=== PATIENT | female | born 1980 | race African-American/Black ===

== ENCOUNTER 2017-04-18 09:51 | Inpatient (IN) ==
[2017-04-18] MEDS ORDERED: ALBUTEROL 2.5 MG/3 ML NEB RESP TX STA (10:18)
[2017-04-18] MEDS ORDERED: ALBUTEROL 2.5 MG/3 ML NEB RESP TX ONE (10:29)
[2017-04-18 10:33] LABS: ABG Base Excess 3.9 MMOL/L (-2.5-2.5); ABG HCO3 27.9 MMOL/L (20-26); ABG Oxygen Saturation 94.4 % (95-100); ABG PCO2 55.5 MM HG (35-48); ABG PH 7.352 (7.35-7.45); ABG PO2 78.2 MM HG (80-95); ABG TCO2 27.8 MMOL/L (23-27)
[2017-04-18 10:46] LABS: Basophils % 0.2 % (0.0-0.8); Eosinophils % 0.2 % (0.00-10.9); Hematocrit 36.8 VOL% (35.7-47.0); Hemoglobin 11.6 GM/DL (12.0-16.0); Immature Granulocytes % 0.7 %; Immature Granulocytes Absolute 0.09 #; Lymphocytes # 1.2 10*3/uL (1.4-4.0); Lymphocytes % 9.6 % (21.3-54.2); Mean Corpuscular HGB Conc 31.5 GM/DL (32-36); Mean Corpuscular Hemoglobin 25 PG (27-34); Mean Corpuscular Volume 79.1 FL (87-102); Mean Platelet Volume 9.5 FL (9.6-12.0); Monocytes % 8.3 % (1.7-12.7); NRBC # 0.19 10*3/uL; Neutrophils # 10.1 10*3/uL (1.4-7.4); Platelet Count 275 T/CUMM (130-400); Red Blood Count 4.65 MC/CUMM (3.8-5.5); Red Cell Distribution Width 17.3 % (9.3-17.3); White Blood Count 12.5 T/CUMM (4-12)
[2017-04-18] MEDS ORDERED: MEROPENEM 1,000 MG in SODIUM CHLORIDE 0.9% 100 ML IV STA (10:59)
[2017-04-18] MEDS ORDERED: SULFAMETHOX/TRIMETHOPRIM 800-160 MG TABLET PO STA (10:59)
[2017-04-18] MEDS ORDERED: MEROPENEM 1,000 MG VIAL IV ONE ×3 (11:04→18:34)
[2017-04-18] MEDS ORDERED: SULFAMETHOX/TRIMETHOPRIM 800-160 MG TABLET ONE ×2 (11:05→16:09)
[2017-04-18 11:07] LABS: Alanine Aminotransferase 32 U/L (13-56); Albumin 3.5 G/DL (3.4-5.0); Alkaline Phosphatase 102 U/L (45-117); Aspartate Amino Transferase 26 U/L (0-37); Bilirubin,Total < 0.39 MG/DL (0.2-1.0); Blood Urea Nitrogen 16 MG/DL (7-18); Calcium 8.6 MG/DL (8.5-10.1); Glucose 186 MG/DL (74-106); Osmolality,Calculated 273.2 MOS/KG (273-304); Potassium 4.2 MMOL/L (3.5-5.1); Sodium 134 MMOL/L (136-145); Total Protein 7.7 G/DL (6.4-8.3)
[2017-04-18] MEDS ORDERED: SODIUM CHLORIDE 0.9% 1,000 ML IV SCH (11:30)
[2017-04-18] MEDS ORDERED: cefTRIAXone 1,000 MG in SODIUM CHLORIDE 0.9% 100 ML IV SCH (11:30)
[2017-04-18] MEDS ORDERED: VANCOMYCIN INJ 1,000 MG in SODIUM CHLORIDE 0.9% 250 ML IV SCH (11:30)
[2017-04-18] MEDS ORDERED: AZITHROMYCIN 500 MG VIAL IV ONE (11:58)
[2017-04-18] MEDS ORDERED: VANCOMYCIN 1,000 MG VIAL ONE (11:58)
[2017-04-18] MEDS ORDERED: VANCOMYCIN INJ 2,000 MG in SODIUM CHLORIDE 0.9% 500 ML IV SCH (12:00)
[2017-04-18] MEDS: methylPREDNISolone SOD SUC 40 MG/1 ML VIAL IV SCH (12:15)
[2017-04-18] MEDS: AZITHROMYCIN INJ 500 MG in SODIUM CHLORIDE 0.9% 250 ML IV SCH (12:17)
[2017-04-18 12:21] LABS: Hepatitis A Ab IgM Quant 0.05 Index; Hepatitis A Ab IgM Result Negative (Negative); Hepatitis B Core IgM Quant 0.11 Index; Hepatitis B Core IgM Result Negative (Negative); Hepatitis B Surface Ag Quant < 0.10 Index; Hepatitis B Surface Ag Result Negative (Negative); Hepatitis C Virus Ab Quant < 0.02 Index; Hepatitis C Virus Ab Result Negative (Negative)
[2017-04-18] MEDS: ALBUTEROL/IPRATROPIUM 3 ML NEB RESP TX SCH ×2 (13:08→20:11)
[2017-04-18] MEDS: VANCOMYCIN INJ 2,000 MG in SODIUM CHLORIDE 0.9% 500 ML IV SCH (13:09)
[2017-04-18] MEDS ORDERED: MORPHINE 2 MG/1 ML SYRINGE ONE (16:06)
[2017-04-18] MEDS: MORPHINE 2 MG/1 ML SYRINGE IV PRN (16:07)
[2017-04-18] MEDS: SULFAMETHOX/TRIMETHOPRIM 800-160 MG TABLET PO SCH ×2 (16:09→20:32)
[2017-04-18] MEDS: MEROPENEM 500 MG in SYRINGE 1 EACH IV SCH (18:41)
[2017-04-18] MEDS: guaiFENesin/DM ER 600-30 MG TABLET PO SCH (20:32)
[2017-04-18] MEDS: ENOXAPARIN 40 MG/0.4 ML SYRINGE SUBCUT SCH (20:32)
[2017-04-18] MEDS ORDERED: FUROSEMIDE 40 MG/4 ML VIAL IV ONE (21:19)
[2017-04-18] MEDS ORDERED: FUROSEMIDE 40 MG/4 ML VIAL ONE (21:36)
[2017-04-18 23:20] LABS: Apearance,Urine Slightly Hazy (Clear); Bilirubin,Urine Negative (Negative); Blood, Urine Negative (Negative); Glucose,Urine (UA) 50 mg/dL (Negative); Granular Casts,Urine 6 /LPF (0-1); Hyaline Casts,Urine 11 /LPF (0-3); Ketones,Urine Negative (Negative); Mucus,Urine Occasional /LPF (Occasional); Nitrite,Urine Negative (Negative); Protein,Urine 30 MG/DL; RBC,Urine 1 /HPF (0-4); Squamous Epithelial Cell,Urine Occasional /HPF (0-10); Urine Color Yellow (Yellow); Urine Specific Gravity 1.017 (1.001-1.035); Urine Urobilinogen < 2.0 EU/DL (0.2-1.0); WBC,Urine <1 /HPF (0-6)
[2017-04-19] MEDS: SODIUM CHLORIDE 0.9% 1,000 ML IV SCH ×2 (00:07→13:35)
[2017-04-19] MEDS: VANCOMYCIN INJ 2,000 MG in SODIUM CHLORIDE 0.9% 500 ML IV SCH ×2 (00:12→14:49)
[2017-04-19] MEDS: methylPREDNISolone SOD SUC 40 MG/1 ML VIAL IV SCH ×3 (00:15→23:12)
[2017-04-19] MEDS: ALBUTEROL/IPRATROPIUM 3 ML NEB RESP TX SCH ×4 (00:32→18:35)
[2017-04-19] MEDS: MEROPENEM 500 MG in SYRINGE 1 EACH IV SCH ×3 (02:33→18:43)
[2017-04-19 03:33] LABS: Allen Test Positive; Pt O2 Delivery Device CPAP
[2017-04-19 04:25] LABS: ABG Base Excess 3.6 MMOL/L (-2.5-2.5); ABG HCO3 30.7 MMOL/L (20-26); ABG Oxygen Saturation 66.6 % (95-100); ABG PCO2 59.5 MM HG (35-48); ABG PH 7.331 (7.35-7.45); ABG TCO2 32.6 MMOL/L (23-27)
[2017-04-19 05:18] LABS: ABG Base Excess 3.4 MMOL/L (-2.5-2.5); ABG HCO3 26.9 MMOL/L (20-26); ABG PCO2 61.5 MM HG (35-48); ABG PH 7.314 (7.35-7.45); ABG TCO2 28.5 MMOL/L (23-27); Allen Test Positive; Pt O2 Delivery Device BIPAP
[2017-04-19 05:20] LABS: ABG PO2 42.4 MM HG (80-95)
[2017-04-19 05:21] LABS: ABG Oxygen Saturation 69.8 % (95-100)
[2017-04-19 08:41] LABS: Alanine Aminotransferase 25 U/L (13-56); Alkaline Phosphatase 90 U/L (45-117); Aspartate Amino Transferase 14 U/L (0-37); Bilirubin,Total < 0.39 MG/DL (0.2-1.0); Blood Urea Nitrogen 18 MG/DL (7-18); Calcium 7.9 MG/DL (8.5-10.1); Glucose 249 MG/DL (74-106); Osmolality,Calculated 277.2 MOS/KG (273-304); Potassium 4.6 MMOL/L (3.5-5.1); Sodium 134 MMOL/L (136-145); Total Protein 7.1 G/DL (6.4-8.3)
[2017-04-19 09:11] LABS: ABG Base Excess 2.8 MMOL/L (-2.5-2.5); ABG HCO3 26.3 MMOL/L (20-26); ABG PCO2 55.3 MM HG (35-48); ABG PH 7.338 (7.35-7.45); ABG TCO2 27.2 MMOL/L (23-27)
[2017-04-19] MEDS: SULFAMETHOX/TRIMETHOPRIM 800-160 MG TABLET PO SCH ×3 (09:15→20:46)
[2017-04-19] MEDS: guaiFENesin/DM ER 600-30 MG TABLET PO SCH ×2 (09:15→20:46)
[2017-04-19 09:24] LABS: ABG PO2 38.4 MM HG (80-95)
[2017-04-19] MEDS: ALBUTEROL 2.5 MG/3 ML NEB RESP TX PRN (09:40)
[2017-04-19 10:41] LABS: ABG Base Excess 2.8 MMOL/L (-2.5-2.5); ABG HCO3 26.2 MMOL/L (20-26); ABG Oxygen Saturation 60.8 % (95-100); ABG PCO2 54.1 MM HG (35-48); ABG PH 7.346 (7.35-7.45)
[2017-04-19 10:43] LABS: ABG PO2 36.1 MM HG (80-95)
[2017-04-19 12:25] LABS: ABG Base Excess 3.6 MMOL/L (-2.5-2.5); ABG HCO3 27.4 MMOL/L (20-26); ABG Oxygen Saturation 85.5 % (95-100); ABG PCO2 42.1 MM HG (35-48); ABG PH 7.433 (7.35-7.45); ABG PO2 50.6 MM HG (80-95); ABG TCO2 25.5 MMOL/L (23-27)
[2017-04-19] MEDS: AZITHROMYCIN INJ 500 MG in SODIUM CHLORIDE 0.9% 250 ML IV SCH (13:40)
[2017-04-19] MEDS: GENVOYA PO SCH (14:56)
[2017-04-19] MEDS: ENOXAPARIN 40 MG/0.4 ML SYRINGE SUBCUT SCH (20:46)
[2017-04-20] MEDS: ALBUTEROL/IPRATROPIUM 3 ML NEB RESP TX SCH ×4 (02:16→20:25)
[2017-04-20] MEDS: SODIUM CHLORIDE 0.9% 1,000 ML IV SCH ×3 (02:55→15:39)
[2017-04-20] MEDS: MEROPENEM 500 MG in SYRINGE 1 EACH IV SCH ×3 (03:38→17:40)
[2017-04-20 03:53] LABS: Allen Test Positive; Pt O2 Delivery Device BIPAP
[2017-04-20 03:58] LABS: ABG Base Excess 2.8 MMOL/L (-2.5-2.5); ABG HCO3 26.4 MMOL/L (20-26); ABG Oxygen Saturation 69.6 % (95-100); ABG PCO2 60.2 MM HG (35-48); ABG PO2 42.6 MM HG (80-95)
[2017-04-20 05:45] LABS: Basophils % 0.1 % (0.0-0.8); Hematocrit 33.3 VOL% (35.7-47.0); Hemoglobin 10.3 GM/DL (12.0-16.0); Immature Granulocytes % 1.2 %; Immature Granulocytes Absolute 0.19 #; Lymphocytes # 0.6 10*3/uL (1.4-4.0); Lymphocytes % 3.5 % (21.3-54.2); Mean Corpuscular HGB Conc 30.9 GM/DL (32-36); Mean Corpuscular Hemoglobin 25 PG (27-34); Mean Corpuscular Volume 79.7 FL (87-102); Mean Platelet Volume 9.9 FL (9.6-12.0); Monocytes # 0.5 10*3/uL (0.11-0.8); Monocytes % 3.4 % (1.7-12.7); Neutrophils # 14.6 10*3/uL (1.4-7.4); Neutrophils % 91.8 % (38.7-73.9); Platelet Count 264 T/CUMM (130-400); Red Blood Count 4.18 MC/CUMM (3.8-5.5); Red Cell Distribution Width 17.7 % (9.3-17.3); White Blood Count 15.9 T/CUMM (4-12)
[2017-04-20 06:10] LABS: Albumin 2.9 G/DL (3.4-5.0); Bilirubin,Total 0.8 MG/DL (0.2-1.0); Calcium 7.7 MG/DL (8.5-10.1); Magnesium 2.7 MG/DL (1.8-2.4); Osmolality,Calculated 283.1 MOS/KG (273-304); Total Protein 6.8 G/DL (6.4-8.3)
[2017-04-20] MEDS: VANCOMYCIN INJ 2,000 MG in SODIUM CHLORIDE 0.9% 500 ML IV SCH ×2 (06:13→17:33)
[2017-04-20 06:21] LABS: Band Neutrophils 1 % (0-10); Hypochromasia 2+; Lymphocytes 5 % (20-55); Nucleated Red Blood Cells 3 (0-5); Platelet Estimate Normal; Segmented Neutrophils 91 % (50-85); Total Cells Counted 100
[2017-04-20] MEDS ORDERED: PNEUMOCOCCAL VACCINE (13 VALENT) 0.5 ML SYRINGE IM ONE (07:00)
[2017-04-20] MEDS: GENVOYA PO SCH (08:40)
[2017-04-20] MEDS: guaiFENesin/DM ER 600-30 MG TABLET PO SCH ×2 (08:40→20:05)
[2017-04-20] MEDS: SULFAMETHOX/TRIMETHOPRIM 800-160 MG TABLET PO SCH ×3 (08:40→20:05)
[2017-04-20] MEDS: MONTELUKAST 10 MG TABLET PO SCH ×2 (10:21→20:05)
[2017-04-20] MEDS: AZITHROMYCIN INJ 500 MG in SODIUM CHLORIDE 0.9% 250 ML IV SCH (11:08)
[2017-04-20] MEDS: methylPREDNISolone SOD SUC 40 MG/1 ML VIAL IV SCH ×2 (11:08→23:18)
[2017-04-20] MEDS: ONDANSETRON 4 MG/2 ML VIAL IV PRN ×2 (14:20→19:38)
[2017-04-20] MEDS: ENOXAPARIN 40 MG/0.4 ML SYRINGE SUBCUT SCH (20:04)
[2017-04-20] MEDS: MORPHINE 2 MG/1 ML SYRINGE IV PRN (22:55)
[2017-04-21] MEDS: VANCOMYCIN INJ 2,000 MG in SODIUM CHLORIDE 0.9% 500 ML IV SCH ×2 (00:07→17:30)
[2017-04-21 00:49] LABS: ABG Base Excess 1.3 MMOL/L (-2.5-2.5); ABG HCO3 25.2 MMOL/L (20-26); ABG Oxygen Saturation 75.6 % (95-100); ABG PCO2 54.5 MM HG (35-48); ABG PH 7.321 (7.35-7.45); ABG PO2 47.5 MM HG (80-95)
[2017-04-21] MEDS: ALBUTEROL/IPRATROPIUM 3 ML NEB RESP TX SCH ×4 (01:09→19:27)
[2017-04-21] MEDS: MEROPENEM 500 MG in SYRINGE 1 EACH IV SCH ×3 (02:00→17:23)
[2017-04-21] MEDS: MORPHINE 2 MG/1 ML SYRINGE IV PRN ×2 (03:45→06:45)
[2017-04-21 04:51] LABS: Allen Test Positive; Pt O2 Delivery Device BIPAP
[2017-04-21 04:53] LABS: ABG Base Excess 1.1 MMOL/L (-2.5-2.5); ABG HCO3 25.3 MMOL/L (20-26); ABG Oxygen Saturation 89.6 % (95-100); ABG PCO2 48.5 MM HG (35-48); ABG PH 7.356 (7.35-7.45); ABG PO2 63.2 MM HG (80-95); ABG TCO2 24.9 MMOL/L (23-27)
[2017-04-21 05:21] LABS: Basophils % 0.2 % (0.0-0.8); Hematocrit 32.3 VOL% (35.7-47.0); Hemoglobin 10.1 GM/DL (12.0-16.0); Immature Granulocytes % 1.5 %; Immature Granulocytes Absolute 0.23 #; Lymphocytes # 0.7 10*3/uL (1.4-4.0); Lymphocytes % 4.3 % (21.3-54.2); Mean Corpuscular HGB Conc 31.3 GM/DL (32-36); Mean Corpuscular Hemoglobin 24 PG (27-34); Mean Corpuscular Volume 77.6 FL (87-102); Mean Platelet Volume 10.2 FL (9.6-12.0); Monocytes # 0.7 10*3/uL (0.11-0.8); Monocytes % 4.2 % (1.7-12.7); NRBC # 1.03 10*3/uL; Neutrophils % 89.8 % (38.7-73.9); Platelet Count 280 T/CUMM (130-400); Red Blood Count 4.16 MC/CUMM (3.8-5.5); Red Cell Distribution Width 17.2 % (9.3-17.3); White Blood Count 15.6 T/CUMM (4-12)
[2017-04-21 05:44] LABS: Calcium 7.8 MG/DL (8.5-10.1); Magnesium 2.9 MG/DL (1.8-2.4); Osmolality,Calculated 280.4 MOS/KG (273-304); Potassium 4.9 MMOL/L (3.5-5.1)
[2017-04-21 05:47] LABS: Hypochromasia 1+; Microcytosis 1+; Platelet Estimate Normal
[2017-04-21 06:14] LABS: Albumin 3.1 G/DL (3.4-5.0); Bilirubin,Total 0.4 MG/DL (0.2-1.0); Osmolality,Calculated 279.5 MOS/KG (273-304); Total Protein 6.9 G/DL (6.4-8.3)
[2017-04-21] MEDS: SULFAMETHOX/TRIMETHOPRIM 800-160 MG TABLET PO SCH (08:48)
[2017-04-21] MEDS: MONTELUKAST 10 MG TABLET PO SCH ×2 (08:48→21:36)
[2017-04-21] MEDS: guaiFENesin/DM ER 600-30 MG TABLET PO SCH ×2 (08:48→21:35)
[2017-04-21] MEDS: GENVOYA PO SCH (08:49)
[2017-04-21] MEDS ORDERED: PROPOFOL 1,000 MG/100 ML BOTTLE IV ONE (09:46)
[2017-04-21] MEDS ORDERED: ROCURONIUM 100 MG/10 ML VIAL IV ONE (10:00)
[2017-04-21] MEDS: PROPOFOL 1,000 MG/100 ML BOTTLE IV SCH ×6 (10:00→23:46)
[2017-04-21 10:52] LABS: Allen Test Positive; Pt O2 Delivery Device Ventilator
[2017-04-21 11:33] LABS: ABG Base Excess 1.1 MMOL/L (-2.5-2.5); ABG HCO3 28.2 MMOL/L (20-26); ABG Oxygen Saturation 87.6 % (95-100); ABG PH 7.312 (7.35-7.45); ABG PO2 59.5 MM HG (80-95); ABG TCO2 29.9 MMOL/L (23-27)
[2017-04-21] MEDS: SODIUM CHLORIDE 0.9% 1,000 ML IV SCH ×2 (11:43→19:18)
[2017-04-21] MEDS: methylPREDNISolone SOD SUC 40 MG/1 ML VIAL IV SCH ×2 (12:03→23:45)
[2017-04-21 12:11] LABS: Barbiturates Screen,Urine Negative (Negative); Benzodiazepines Screen,Urine Negative (Negative); Cannabinoid Screen,Urine Negative (Negative); Opiate Screen,Urine Positive (Negative); Phencyclidine Screen,Urine Negative (Negative)
[2017-04-21] MEDS ORDERED: TRIMETH IV SCH (12:30)
[2017-04-21] MEDS ORDERED: SULFAMETH IV SCH (12:30)
[2017-04-21] MEDS ORDERED: DEXTROSE 5% IV SCH (12:30)
[2017-04-21] MEDS: SULFAMETH IV SCH ×2 (13:16→21:15)
[2017-04-21] MEDS: TRIMETH IV SCH ×2 (13:16→21:15)
[2017-04-21] MEDS: DEXTROSE 5% IV SCH ×2 (13:16→21:15)
[2017-04-21] MEDS: MIDAZOLAM 100 MG in SODIUM CHLORIDE 0.9% 80 ML IV SCH (14:10)
[2017-04-21] MEDS: cloNIDine 0.3 MG/24 HR PATCH TRANSDERM SCH (14:32)
[2017-04-21] MEDS: AZITHROMYCIN INJ 500 MG in SODIUM CHLORIDE 0.9% 250 ML IV SCH (14:46)
[2017-04-21] MEDS ORDERED: DEXTROSE 50% 25 GM/50 ML VIAL IV PRN (16:04)
[2017-04-21] MEDS ORDERED: GLUCAGON 1 MG VIAL IM PRN (16:04)
[2017-04-21 17:22] LABS: ABG Base Excess -0.2 MMOL/L (-2.5-2.5); ABG Oxygen Saturation 82.2 % (95-100); ABG PCO2 53.3 MM HG (35-48); ABG PH 7.308 (7.35-7.45); ABG PO2 54.8 MM HG (80-95); ABG TCO2 24.8 MMOL/L (23-27); Allen Test Positive; Pt O2 Delivery Device Ventilator
[2017-04-21] MEDS: INSULIN REGULAR 100 UNIT/ML SUBCUT SCH ×2 (18:42→23:45)
[2017-04-21 20:37] LABS: ABG Base Excess 0.9 MMOL/L (-2.5-2.5); ABG Oxygen Saturation 86.5 % (95-100); ABG PCO2 48.2 MM HG (35-48); ABG PH 7.354 (7.35-7.45); ABG PO2 57.9 MM HG (80-95); ABG TCO2 24.7 MMOL/L (23-27)
[2017-04-21] MEDS: ENOXAPARIN 40 MG/0.4 ML SYRINGE SUBCUT SCH (21:35)
[2017-04-22] MEDS: PROPOFOL 1,000 MG/100 ML BOTTLE IV SCH ×9 (01:53→22:32)
[2017-04-22] MEDS: MEROPENEM 500 MG in SYRINGE 1 EACH IV SCH ×3 (01:53→17:50)
[2017-04-22] MEDS: ALBUTEROL/IPRATROPIUM 3 ML NEB RESP TX SCH ×4 (02:24→18:27)
[2017-04-22] MEDS: SODIUM CHLORIDE 0.9% 1,000 ML IV SCH ×2 (02:30→21:59)
[2017-04-22 03:06] LABS: ABG Base Excess 1.3 MMOL/L (-2.5-2.5); ABG HCO3 25.4 MMOL/L (20-26); ABG Oxygen Saturation 83.5 % (95-100); ABG PCO2 42.6 MM HG (35-48); ABG PH 7.399 (7.35-7.45); ABG PO2 52.6 MM HG (80-95); ABG TCO2 24.2 MMOL/L (23-27)
[2017-04-22] MEDS: TRIMETH IV SCH ×3 (04:42→22:04)
[2017-04-22] MEDS: DEXTROSE 5% IV SCH ×3 (04:42→22:04)
[2017-04-22] MEDS: SULFAMETH IV SCH ×3 (04:42→22:04)
[2017-04-22 05:39] LABS: Calcium 7.7 MG/DL (8.5-10.1); Magnesium 3.3 MG/DL (1.8-2.4); Osmolality,Calculated 282.2 MOS/KG (273-304); Potassium 4.6 MMOL/L (3.5-5.1)
[2017-04-22 06:03] LABS: Calcium 7.8 MG/DL (8.5-10.1); Osmolality,Calculated 280.4 MOS/KG (273-304); Potassium 4.6 MMOL/L (3.5-5.1); Prealbumin 14.8 MG/DL (20-40)
[2017-04-22] MEDS: INSULIN REGULAR 100 UNIT/ML SUBCUT SCH ×4 (06:29→23:24)
[2017-04-22] MEDS: GENVOYA PO SCH (08:50)
[2017-04-22] MEDS: guaiFENesin/DM ER 600-30 MG TABLET PO SCH ×2 (08:50→20:16)
[2017-04-22] MEDS: MULTIVITAMIN LIQUID (CENTRUM) 60 ML BOTTLE PER TUBE SCH (08:50)
[2017-04-22] MEDS: MONTELUKAST 10 MG TABLET PO SCH ×2 (08:50→20:16)
[2017-04-22] MEDS: methylPREDNISolone SOD SUC 40 MG/1 ML VIAL IV SCH ×2 (10:55→23:24)
[2017-04-22] MEDS: VANCOMYCIN INJ 2,000 MG in SODIUM CHLORIDE 0.9% 500 ML IV SCH (11:01)
[2017-04-22] MEDS: FUROSEMIDE 20 MG/2 ML VIAL IV SCH (15:27)
[2017-04-22] MEDS: AZITHROMYCIN INJ 500 MG in SODIUM CHLORIDE 0.9% 250 ML IV SCH (15:28)
[2017-04-22] MEDS: MIDAZOLAM 100 MG in SODIUM CHLORIDE 0.9% 80 ML IV SCH (19:24)
[2017-04-22] MEDS: ENOXAPARIN 40 MG/0.4 ML SYRINGE SUBCUT SCH (20:16)
[2017-04-22] MEDS: INSULIN GLARGINE 100 UNIT/ML SUBCUT SCH (20:16)
[2017-04-23] MEDS: PROPOFOL 1,000 MG/100 ML BOTTLE IV SCH ×10 (00:51→23:00)
[2017-04-23] MEDS: ALBUTEROL/IPRATROPIUM 3 ML NEB RESP TX SCH ×4 (01:00→19:26)
[2017-04-23] MEDS: MEROPENEM 500 MG in SYRINGE 1 EACH IV SCH (03:00)
[2017-04-23 03:26] LABS: ABG Base Excess -0.1 MMOL/L (-2.5-2.5); ABG HCO3 25.5 MMOL/L (20-26); ABG Oxygen Saturation 88.9 % (95-100); ABG PCO2 45.9 MM HG (35-48); ABG PH 7.363 (7.35-7.45); ABG PO2 59.4 MM HG (80-95); ABG TCO2 26.9 MMOL/L (23-27); Allen Test Positive; Pt O2 Delivery Device Ventilator
[2017-04-23 05:33] LABS: Basophils % 0.2 % (0.0-0.8); Hematocrit 28.9 VOL% (35.7-47.0); Hemoglobin 9.2 GM/DL (12.0-16.0); Immature Granulocytes % 1.5 %; Immature Granulocytes Absolute 0.16 #; Lymphocytes # 0.4 10*3/uL (1.4-4.0); Lymphocytes % 3.8 % (21.3-54.2); Mean Corpuscular HGB Conc 31.8 GM/DL (32-36); Mean Corpuscular Hemoglobin 24 PG (27-34); Mean Corpuscular Volume 76.7 FL (87-102); Mean Platelet Volume 9.8 FL (9.6-12.0); Monocytes # 0.6 10*3/uL (0.11-0.8); Monocytes % 5.7 % (1.7-12.7); NRBC # 2.17 10*3/uL; Neutrophils # 9.8 10*3/uL (1.4-7.4); Neutrophils % 88.8 % (38.7-73.9); Platelet Count 228 T/CUMM (130-400); Red Blood Count 3.77 MC/CUMM (3.8-5.5); Red Cell Distribution Width 17.1 % (9.3-17.3)
[2017-04-23 05:39] LABS: PT Patient Result 10.6 SECS; Partial Thromboplastin Time 26.3 SECS (0-40)
[2017-04-23 06:03] LABS: Calcium 7.7 MG/DL (8.5-10.1); Magnesium 3.1 MG/DL (1.8-2.4); Osmolality,Calculated 280.5 MOS/KG (273-304); Potassium 5.1 MMOL/L (3.5-5.1)
[2017-04-23 06:04] LABS: Band Neutrophils 1 % (0-10); Eosinophils 1 % (0-10); Giant Platelets Few; Hypochromasia 1+; Lymphocytes 5 % (20-55); Microcytosis Slight; Nucleated Red Blood Cells 23 (0-5); Platelet Estimate Adequate; Segmented Neutrophils 88 % (50-85); Total Cells Counted 100
[2017-04-23] MEDS: DEXTROSE 5% IV SCH ×3 (06:19→22:38)
[2017-04-23] MEDS: SULFAMETH IV SCH ×3 (06:19→22:38)
[2017-04-23] MEDS: TRIMETH IV SCH ×3 (06:19→22:38)
[2017-04-23] MEDS: INSULIN REGULAR 100 UNIT/ML SUBCUT SCH ×3 (06:32→18:00)
[2017-04-23] MEDS: MULTIVITAMIN LIQUID (CENTRUM) 60 ML BOTTLE PER TUBE SCH (09:14)
[2017-04-23] MEDS: GENVOYA PO SCH (09:15)
[2017-04-23] MEDS: MONTELUKAST 10 MG TABLET PO SCH ×2 (09:15→22:46)
[2017-04-23] MEDS: FUROSEMIDE 20 MG/2 ML VIAL IV SCH ×2 (09:16→18:02)
[2017-04-23] MEDS: guaiFENesin/DM ER 600-30 MG TABLET PO SCH ×2 (09:16→22:46)
[2017-04-23 10:52] LABS: % Iron Saturation 3.4 % (18-50)
[2017-04-23] MEDS ORDERED: MEROPENEM 1,000 MG in SYRINGE 1 EACH IV SCH (11:00)
[2017-04-23 12:26] LABS: Procalcitonin, S 0.16 ng/mL (<=0.15)
[2017-04-23] MEDS: methylPREDNISolone SOD SUC 40 MG/1 ML VIAL IV SCH (13:29)
[2017-04-23] MEDS: PANTOPRAZOLE 40 MG VIAL IV SCH (13:32)
[2017-04-23] MEDS: cefTRIAXone 2,000 MG in SYRINGE 1 EACH IV SCH (13:41)
[2017-04-23] MEDS: SODIUM CHLORIDE 0.9% 1,000 ML IV SCH (13:47)
[2017-04-23] MEDS: AZITHROMYCIN INJ 500 MG in SODIUM CHLORIDE 0.9% 250 ML IV SCH (15:03)
[2017-04-23] MEDS: ENOXAPARIN 40 MG/0.4 ML SYRINGE SUBCUT SCH (22:40)
[2017-04-23] MEDS: INSULIN GLARGINE 100 UNIT/ML SUBCUT SCH (22:40)
[2017-04-24] MEDS: ALBUTEROL/IPRATROPIUM 3 ML NEB RESP TX SCH ×4 (00:21→19:52)
[2017-04-24] MEDS: methylPREDNISolone SOD SUC 40 MG/1 ML VIAL IV SCH ×2 (00:50→13:37)
[2017-04-24] MEDS: INSULIN REGULAR 100 UNIT/ML SUBCUT SCH ×4 (00:51→19:18)
[2017-04-24] MEDS: PROPOFOL 1,000 MG/100 ML BOTTLE IV SCH ×9 (01:19→22:26)
[2017-04-24] MEDS: SODIUM CHLORIDE 0.9% 1,000 ML IV SCH ×2 (01:19→14:51)
[2017-04-24 03:28] LABS: ABG Base Excess 5.1 MMOL/L (-2.5-2.5); ABG HCO3 29.6 MMOL/L (20-26); ABG PCO2 43.8 MM HG (35-48); ABG PH 7.448 (7.35-7.45); ABG PO2 117.9 MM HG (80-95); Allen Test Positive; Pt O2 Delivery Device Ventilator
[2017-04-24] MEDS: SULFAMETH IV SCH ×3 (05:49→22:08)
[2017-04-24] MEDS: TRIMETH IV SCH ×3 (05:49→22:08)
[2017-04-24] MEDS: DEXTROSE 5% IV SCH ×3 (05:49→22:08)
[2017-04-24] MEDS: MIDAZOLAM 100 MG in SODIUM CHLORIDE 0.9% 80 ML IV SCH (05:50)
[2017-04-24 07:04] LABS: Calcium 8.1 MG/DL (8.5-10.1); Magnesium 2.8 MG/DL (1.8-2.4); Osmolality,Calculated 281.5 MOS/KG (273-304); Potassium 5.4 MMOL/L (3.5-5.1)
[2017-04-24 08:56] LABS: % CD4 (T Cells) 13 % (32-64); % CD8 (T Cells) 22 % (15-40); 4/8 Ratio 0.6 (>=0.9)
[2017-04-24] MEDS: FUROSEMIDE 20 MG/2 ML VIAL IV SCH ×2 (09:11→19:25)
[2017-04-24] MEDS: PANTOPRAZOLE 40 MG VIAL IV SCH (09:20)
[2017-04-24] MEDS: GENVOYA PO SCH (09:24)
[2017-04-24] MEDS: MULTIVITAMIN LIQUID (CENTRUM) 60 ML BOTTLE PER TUBE SCH (09:24)
[2017-04-24] MEDS: guaiFENesin/DM ER 600-30 MG TABLET PO SCH ×2 (09:25→22:00)
[2017-04-24] MEDS: MONTELUKAST 10 MG TABLET PO SCH ×2 (09:25→22:00)
[2017-04-24] MEDS: AZITHROMYCIN INJ 500 MG in SODIUM CHLORIDE 0.9% 250 ML IV SCH (15:31)
[2017-04-24] MEDS: cefTRIAXone 2,000 MG in SYRINGE 1 EACH IV SCH (15:34)
[2017-04-24] MEDS: INSULIN GLARGINE 100 UNIT/ML SUBCUT SCH (21:58)
[2017-04-24] MEDS: ENOXAPARIN 40 MG/0.4 ML SYRINGE SUBCUT SCH (21:59)
[2017-04-25] MEDS: methylPREDNISolone SOD SUC 40 MG/1 ML VIAL IV SCH ×2 (00:50→12:14)
[2017-04-25] MEDS: INSULIN REGULAR 100 UNIT/ML SUBCUT SCH ×4 (00:56→18:57)
[2017-04-25] MEDS: PROPOFOL 1,000 MG/100 ML BOTTLE IV SCH ×10 (00:59→22:02)
[2017-04-25] MEDS: ALBUTEROL/IPRATROPIUM 3 ML NEB RESP TX SCH ×4 (01:00→18:35)
[2017-04-25 03:43] LABS: ABG HCO3 32.6 MMOL/L (20-26); ABG PCO2 40.8 MM HG (35-48); ABG PO2 198.6 MM HG (80-95); ABG TCO2 33.8 MMOL/L (23-27)
[2017-04-25] MEDS: SODIUM CHLORIDE 0.9% 1,000 ML IV SCH ×2 (04:11→17:44)
[2017-04-25 05:43] LABS: Calcium 8.4 MG/DL (8.5-10.1); Magnesium 2.4 MG/DL (1.8-2.4); Osmolality,Calculated 276.7 MOS/KG (273-304); Potassium 5.1 MMOL/L (3.5-5.1)
[2017-04-25] MEDS: MIDAZOLAM 100 MG in SODIUM CHLORIDE 0.9% 80 ML IV SCH ×2 (06:00→21:38)
[2017-04-25] MEDS: SULFAMETH IV SCH ×3 (06:06→20:48)
[2017-04-25] MEDS: DEXTROSE 5% IV SCH ×3 (06:06→20:48)
[2017-04-25] MEDS: TRIMETH IV SCH ×3 (06:06→20:48)
[2017-04-25] MEDS: PANTOPRAZOLE 40 MG VIAL IV SCH (09:22)
[2017-04-25] MEDS: MONTELUKAST 10 MG TABLET PO SCH ×2 (09:23→20:44)
[2017-04-25] MEDS: guaiFENesin/DM ER 600-30 MG TABLET PO SCH ×2 (09:23→20:44)
[2017-04-25] MEDS: FUROSEMIDE 20 MG/2 ML VIAL IV SCH ×2 (09:24→17:17)
[2017-04-25] MEDS: MORPHINE 2 MG/1 ML SYRINGE IV PRN (09:24)
[2017-04-25] MEDS: GENVOYA PO SCH (09:25)
[2017-04-25] MEDS: MULTIVITAMIN LIQUID (CENTRUM) 60 ML BOTTLE PER TUBE SCH (09:26)
[2017-04-25] MEDS: FOLIC ACID 1 MG TABLET PO SCH (11:59)
[2017-04-25] MEDS: FERRIC GLUCONATE COMPLEX 125 MG in SODIUM CHLORIDE 0.9% 100 ML IV SCH (12:13)
[2017-04-25] MEDS: AZITHROMYCIN INJ 500 MG in SODIUM CHLORIDE 0.9% 250 ML IV SCH (14:12)
[2017-04-25] MEDS: cefTRIAXone 2,000 MG in SYRINGE 1 EACH IV SCH (14:17)
[2017-04-25] MEDS: INSULIN GLARGINE 100 UNIT/ML SUBCUT SCH (20:44)
[2017-04-25] MEDS: ENOXAPARIN 40 MG/0.4 ML SYRINGE SUBCUT SCH (20:44)
[2017-04-26] MEDS: methylPREDNISolone SOD SUC 40 MG/1 ML VIAL IV SCH ×3 (00:02→23:53)
[2017-04-26] MEDS: INSULIN REGULAR 100 UNIT/ML SUBCUT SCH ×5 (00:02→23:53)
[2017-04-26] MEDS: PROPOFOL 1,000 MG/100 ML BOTTLE IV SCH ×10 (00:34→22:01)
[2017-04-26] MEDS: ALBUTEROL/IPRATROPIUM 3 ML NEB RESP TX SCH ×4 (01:07→19:08)
[2017-04-26 02:46] LABS: ABG Base Excess 6.3 MMOL/L (-2.5-2.5); ABG HCO3 30.1 MMOL/L (20-26); ABG Oxygen Saturation 96.7 % (95-100); ABG PCO2 29.3 MM HG (35-48); ABG PH 7.583 (7.35-7.45); ABG PO2 84.3 MM HG (80-95); ABG TCO2 24.2 MMOL/L (23-27); Pt O2 Delivery Device Ventilator
[2017-04-26] MEDS: TRIMETH IV SCH ×3 (05:10→21:50)
[2017-04-26] MEDS: SULFAMETH IV SCH ×3 (05:10→21:50)
[2017-04-26] MEDS: DEXTROSE 5% IV SCH ×3 (05:10→21:50)
[2017-04-26] MEDS: SODIUM CHLORIDE 0.9% 1,000 ML IV SCH ×2 (08:17→23:54)
[2017-04-26] MEDS: MULTIVITAMIN LIQUID (CENTRUM) 60 ML BOTTLE PER TUBE SCH (08:46)
[2017-04-26] MEDS: PANTOPRAZOLE 40 MG VIAL IV SCH (08:46)
[2017-04-26] MEDS: GENVOYA PO SCH (08:46)
[2017-04-26] MEDS: FOLIC ACID 1 MG TABLET PO SCH (08:46)
[2017-04-26] MEDS: guaiFENesin/DM ER 600-30 MG TABLET PO SCH ×2 (08:46→21:50)
[2017-04-26] MEDS: FUROSEMIDE 20 MG/2 ML VIAL IV SCH ×2 (08:46→16:13)
[2017-04-26] MEDS: MONTELUKAST 10 MG TABLET PO SCH ×2 (08:46→21:50)
[2017-04-26] MEDS: FERRIC GLUCONATE COMPLEX 125 MG in SODIUM CHLORIDE 0.9% 100 ML IV SCH (09:35)
[2017-04-26] MEDS ORDERED: MORPHINE 2 MG/1 ML SYRINGE IV PRN (11:27)
[2017-04-26] MEDS: MORPHINE 2 MG/1 ML SYRINGE IV PRN (11:58)
[2017-04-26] MEDS: MIDAZOLAM 100 MG in SODIUM CHLORIDE 0.9% 80 ML IV SCH (13:38)
[2017-04-26] MEDS: cefTRIAXone 2,000 MG in SYRINGE 1 EACH IV SCH (13:38)
[2017-04-26] MEDS: INSULIN GLARGINE 100 UNIT/ML SUBCUT SCH (21:50)
[2017-04-26] MEDS: ENOXAPARIN 40 MG/0.4 ML SYRINGE SUBCUT SCH (21:50)
[2017-04-27] MEDS: ALBUTEROL/IPRATROPIUM 3 ML NEB RESP TX SCH ×4 (00:01→20:22)
[2017-04-27] MEDS: PROPOFOL 1,000 MG/100 ML BOTTLE IV SCH ×10 (00:45→23:31)
[2017-04-27] MEDS: SODIUM CHLORIDE 0.9% 1,000 ML IV SCH ×2 (02:26→21:14)
[2017-04-27] MEDS: MORPHINE 2 MG/1 ML SYRINGE IV PRN (02:26)
[2017-04-27 02:55] LABS: ABG Base Excess 3.8 MMOL/L (-2.5-2.5); ABG HCO3 27.8 MMOL/L (20-26); ABG Oxygen Saturation 98.4 % (95-100); ABG PCO2 30.8 MM HG (35-48); ABG PH 7.534 (7.35-7.45); ABG TCO2 23.3 MMOL/L (23-27); Allen Test Positive; Pt O2 Delivery Device Ventilator
[2017-04-27] MEDS: TRIMETH IV SCH ×3 (05:21→21:34)
[2017-04-27] MEDS: DEXTROSE 5% IV SCH ×3 (05:21→21:34)
[2017-04-27] MEDS: SULFAMETH IV SCH ×3 (05:21→21:34)
[2017-04-27] MEDS: MIDAZOLAM 100 MG in SODIUM CHLORIDE 0.9% 80 ML IV SCH ×3 (05:25→22:40)
[2017-04-27] MEDS: INSULIN REGULAR 100 UNIT/ML SUBCUT SCH ×4 (06:15→23:23)
[2017-04-27] MEDS: FUROSEMIDE 20 MG/2 ML VIAL IV SCH ×2 (08:13→15:25)
[2017-04-27] MEDS: PANTOPRAZOLE 40 MG VIAL IV SCH (08:48)
[2017-04-27] MEDS: MONTELUKAST 10 MG TABLET PO SCH ×2 (08:49→21:35)
[2017-04-27] MEDS: FOLIC ACID 1 MG TABLET PO SCH (08:49)
[2017-04-27] MEDS: GENVOYA PO SCH (08:49)
[2017-04-27] MEDS: guaiFENesin/DM ER 600-30 MG TABLET PO SCH ×2 (08:49→21:35)
[2017-04-27] MEDS: FERRIC GLUCONATE COMPLEX 125 MG in SODIUM CHLORIDE 0.9% 100 ML IV SCH (09:10)
[2017-04-27] MEDS: methylPREDNISolone SOD SUC 40 MG/1 ML VIAL IV SCH ×2 (11:15→23:23)
[2017-04-27] MEDS: cefTRIAXone 2,000 MG in SYRINGE 1 EACH IV SCH (13:39)
[2017-04-27] MEDS: MULTIVITAMIN LIQUID (CENTRUM) 60 ML BOTTLE PER TUBE SCH (18:05)
[2017-04-27] MEDS: INSULIN GLARGINE 100 UNIT/ML SUBCUT SCH (21:34)
[2017-04-27] MEDS: ENOXAPARIN 40 MG/0.4 ML SYRINGE SUBCUT SCH (21:35)
[2017-04-28] MEDS: ALBUTEROL/IPRATROPIUM 3 ML NEB RESP TX SCH ×4 (00:43→20:30)
[2017-04-28] MEDS: PROPOFOL 1,000 MG/100 ML BOTTLE IV SCH ×9 (02:03→21:44)
[2017-04-28 03:09] LABS: ABG Base Excess 2.8 MMOL/L (-2.5-2.5); ABG HCO3 26.8 MMOL/L (20-26); ABG PCO2 40.7 MM HG (35-48); ABG PH 7.433 (7.35-7.45); ABG PO2 89.4 MM HG (80-95); ABG TCO2 24.3 MMOL/L (23-27); Allen Test Positive; Pt O2 Delivery Device Ventilator
[2017-04-28] MEDS: TRIMETH IV SCH ×2 (04:40→15:25)
[2017-04-28] MEDS: DEXTROSE 5% IV SCH ×2 (04:40→15:25)
[2017-04-28] MEDS: SULFAMETH IV SCH ×2 (04:40→15:25)
[2017-04-28] MEDS: INSULIN REGULAR 100 UNIT/ML SUBCUT SCH ×3 (05:58→19:20)
[2017-04-28 06:11] LABS: Basophils % 0.1 % (0.0-0.8); Eosinophils # 0.1 10*3/uL (0.0-0.87); Eosinophils % 0.5 % (0.00-10.9); Hematocrit 35.7 VOL% (35.7-47.0); Hemoglobin 11.4 GM/DL (12.0-16.0); Immature Granulocytes % 2.3 %; Immature Granulocytes Absolute 0.24 #; Lymphocytes # 0.3 10*3/uL (1.4-4.0); Lymphocytes % 2.9 % (21.3-54.2); Mean Corpuscular HGB Conc 31.9 GM/DL (32-36); Mean Corpuscular Hemoglobin 24 PG (27-34); Mean Platelet Volume 9.2 FL (9.6-12.0); Monocytes # 0.5 10*3/uL (0.11-0.8); Monocytes % 5.1 % (1.7-12.7); NRBC # 0.02 10*3/uL; Neutrophils # 9.5 10*3/uL (1.4-7.4); Neutrophils % 89.1 % (38.7-73.9); Platelet Count 273 T/CUMM (130-400); Red Cell Distribution Width 17.4 % (9.3-17.3); White Blood Count 10.6 T/CUMM (4-12)
[2017-04-28 06:44] LABS: Band Neutrophils 1 % (0-10); Eosinophils 2 % (0-10); Giant Platelets Few; Hypochromasia 1+; Lymphocytes 1 % (20-55); Microcytosis Slight; Ovalocytes Slight; Platelet Estimate Adequate; Segmented Neutrophils 94 % (50-85); Total Cells Counted 100
[2017-04-28 07:01] LABS: Calcium 8.8 MG/DL (8.5-10.1); Magnesium 2.5 MG/DL (1.8-2.4); Osmolality,Calculated 281.2 MOS/KG (273-304)
[2017-04-28 07:11] LABS: Magnesium 2.6 MG/DL (1.8-2.4); Prealbumin 44.7 MG/DL (20-40)
[2017-04-28 07:56] LABS: Pneumocystis jiroveci Result Negative (Negative); Pneumocystis jiroveci Source SPUTUM
[2017-04-28] MEDS: MORPHINE 2 MG/1 ML SYRINGE IV PRN (08:30)
[2017-04-28] MEDS: PANTOPRAZOLE 40 MG VIAL IV SCH (08:30)
[2017-04-28] MEDS: FUROSEMIDE 20 MG/2 ML VIAL IV SCH ×2 (08:31→19:20)
[2017-04-28] MEDS: cloNIDine 0.3 MG/24 HR PATCH TRANSDERM SCH (08:32)
[2017-04-28] MEDS: FOLIC ACID 1 MG TABLET PO SCH (08:33)
[2017-04-28] MEDS: MONTELUKAST 10 MG TABLET PO SCH ×2 (08:33→20:21)
[2017-04-28] MEDS: guaiFENesin/DM ER 600-30 MG TABLET PO SCH ×2 (08:33→20:21)
[2017-04-28] MEDS: SODIUM CHLORIDE 0.9% 1,000 ML IV SCH ×2 (08:34→22:00)
[2017-04-28] MEDS: GENVOYA PO SCH (08:54)
[2017-04-28] MEDS: FERRIC GLUCONATE COMPLEX 125 MG in SODIUM CHLORIDE 0.9% 100 ML IV SCH (09:04)
[2017-04-28] MEDS: MIDAZOLAM 100 MG in SODIUM CHLORIDE 0.9% 80 ML IV SCH (10:01)
[2017-04-28] MEDS: methylPREDNISolone SOD SUC 40 MG/1 ML VIAL IV SCH (11:42)
[2017-04-28] MEDS: MULTIVITAMIN LIQUID (CENTRUM) 60 ML BOTTLE PER TUBE SCH (11:43)
[2017-04-28] MEDS: cefTRIAXone 2,000 MG in SYRINGE 1 EACH IV SCH (15:26)
[2017-04-28] MEDS: INSULIN GLARGINE 100 UNIT/ML SUBCUT SCH (20:21)
[2017-04-28] MEDS: ENOXAPARIN 40 MG/0.4 ML SYRINGE SUBCUT SCH (20:21)
[2017-04-29] MEDS: INSULIN REGULAR 100 UNIT/ML SUBCUT SCH ×5 (00:05→23:57)
[2017-04-29] MEDS: methylPREDNISolone SOD SUC 40 MG/1 ML VIAL IV SCH ×3 (00:05→23:56)
[2017-04-29] MEDS: PROPOFOL 1,000 MG/100 ML BOTTLE IV SCH ×11 (00:08→23:58)
[2017-04-29] MEDS: ALBUTEROL/IPRATROPIUM 3 ML NEB RESP TX SCH ×4 (00:38→19:48)
[2017-04-29] MEDS: MIDAZOLAM 100 MG in SODIUM CHLORIDE 0.9% 80 ML IV SCH (02:45)
[2017-04-29 03:49] LABS: ABG Base Excess 4.7 MMOL/L (-2.5-2.5); ABG HCO3 28.5 MMOL/L (20-26); ABG PCO2 52.2 MM HG (35-48); ABG PH 7.382 (7.35-7.45); ABG PO2 69.1 MM HG (80-95); ABG TCO2 27.6 MMOL/L (23-27); Allen Test Positive; Pt O2 Delivery Device Ventilator
[2017-04-29 05:39] LABS: Calcium 8.9 MG/DL (8.5-10.1); Magnesium 2.4 MG/DL (1.8-2.4); Potassium 4.6 MMOL/L (3.5-5.1)
[2017-04-29] MEDS: SODIUM CHLORIDE 0.9% 1,000 ML IV SCH ×3 (07:19→15:13)
[2017-04-29] MEDS: FOLIC ACID 1 MG TABLET PO SCH (09:05)
[2017-04-29] MEDS: PANTOPRAZOLE 40 MG VIAL IV SCH (09:05)
[2017-04-29] MEDS: guaiFENesin/DM ER 600-30 MG TABLET PO SCH ×2 (09:05→20:38)
[2017-04-29] MEDS: SULFAMETHOX/TRIMETHOPRIM 200-40 MG/5 ML -20 ML UDCUP NG SCH (09:05)
[2017-04-29] MEDS: FUROSEMIDE 20 MG/2 ML VIAL IV SCH ×2 (09:05→09:11)
[2017-04-29] MEDS: MONTELUKAST 10 MG TABLET PO SCH ×2 (09:05→20:38)
[2017-04-29] MEDS: MULTIVITAMIN LIQUID (CENTRUM) 60 ML BOTTLE PER TUBE SCH (09:06)
[2017-04-29] MEDS: GENVOYA PO SCH (09:06)
[2017-04-29] MEDS: FERRIC GLUCONATE COMPLEX 125 MG in SODIUM CHLORIDE 0.9% 100 ML IV SCH (09:47)
[2017-04-29] MEDS: INSULIN GLARGINE 100 UNIT/ML SUBCUT SCH (20:38)
[2017-04-29] MEDS: ENOXAPARIN 40 MG/0.4 ML SYRINGE SUBCUT SCH (20:38)
[2017-04-30] MEDS: ALBUTEROL/IPRATROPIUM 3 ML NEB RESP TX SCH ×4 (00:13→19:25)
[2017-04-30] MEDS: PROPOFOL 1,000 MG/100 ML BOTTLE IV SCH ×8 (02:30→23:50)
[2017-04-30 03:58] LABS: ABG Base Excess 6.3 MMOL/L (-2.5-2.5); ABG HCO3 30.1 MMOL/L (20-26); ABG Oxygen Saturation 96.4 % (95-100); ABG PCO2 52.8 MM HG (35-48); ABG PH 7.399 (7.35-7.45); ABG PO2 88.6 MM HG (80-95); ABG TCO2 28.9 MMOL/L (23-27)
[2017-04-30 05:16] LABS: Basophils % 0.1 % (0.0-0.8); Eosinophils % 0.1 % (0.00-10.9); Hematocrit 37.5 VOL% (35.7-47.0); Hemoglobin 11.9 GM/DL (12.0-16.0); Immature Granulocytes % 0.8 %; Immature Granulocytes Absolute 0.09 #; Lymphocytes # 0.3 10*3/uL (1.4-4.0); Lymphocytes % 2.5 % (21.3-54.2); Mean Corpuscular HGB Conc 31.7 GM/DL (32-36); Mean Corpuscular Hemoglobin 25 PG (27-34); Mean Corpuscular Volume 78.8 FL (87-102); Mean Platelet Volume 9.6 FL (9.6-12.0); Monocytes # 0.3 10*3/uL (0.11-0.8); Monocytes % 2.7 % (1.7-12.7); Neutrophils # 10.8 10*3/uL (1.4-7.4); Neutrophils % 93.8 % (38.7-73.9); Platelet Count 310 T/CUMM (130-400); Red Blood Count 4.76 MC/CUMM (3.8-5.5); Red Cell Distribution Width 17.7 % (9.3-17.3); White Blood Count 11.6 T/CUMM (4-12)
[2017-04-30 05:24] LABS: PT Patient Result 10.8 SECS; Partial Thromboplastin Time 23.4 SECS (0-40)
[2017-04-30 05:39] LABS: Hypochromasia 1+; Platelet Estimate Adequate; Segmented Neutrophils 98 % (50-85); Total Cells Counted 100
[2017-04-30 05:40] LABS: Giant Platelets Few; Microcytosis Slight; Ovalocytes Slight
[2017-04-30] MEDS: SODIUM CHLORIDE 0.9% 1,000 ML IV SCH ×2 (05:46→20:01)
[2017-04-30 05:51] LABS: Calcium 9.1 MG/DL (8.5-10.1); Magnesium 2.3 MG/DL (1.8-2.4); Osmolality,Calculated 285.8 MOS/KG (273-304); Potassium 4.7 MMOL/L (3.5-5.1)
[2017-04-30] MEDS: INSULIN REGULAR 100 UNIT/ML SUBCUT SCH ×3 (06:01→18:23)
[2017-04-30] MEDS: FUROSEMIDE 20 MG/2 ML VIAL IV SCH (09:49)
[2017-04-30] MEDS: MONTELUKAST 10 MG TABLET PO SCH ×2 (09:50→21:25)
[2017-04-30] MEDS: FOLIC ACID 1 MG TABLET PO SCH (09:50)
[2017-04-30] MEDS: guaiFENesin/DM ER 600-30 MG TABLET PO SCH ×2 (09:50→21:42)
[2017-04-30] MEDS: PANTOPRAZOLE 40 MG VIAL IV SCH (09:50)
[2017-04-30] MEDS: GENVOYA PO SCH (09:50)
[2017-04-30] MEDS: FERRIC GLUCONATE COMPLEX 125 MG in SODIUM CHLORIDE 0.9% 100 ML IV SCH (09:51)
[2017-04-30] MEDS: MULTIVITAMIN LIQUID (CENTRUM) 60 ML BOTTLE PER TUBE SCH (10:34)
[2017-04-30] MEDS: methylPREDNISolone SOD SUC 40 MG/1 ML VIAL IV SCH ×2 (11:06→23:49)
[2017-04-30] MEDS: MIDAZOLAM 100 MG in SODIUM CHLORIDE 0.9% 80 ML IV SCH (11:07)
[2017-04-30] MEDS: SULFAMETHOX/TRIMETHOPRIM 200-40 MG/5 ML -20 ML UDCUP NG SCH (13:12)
[2017-04-30] MEDS: ENOXAPARIN 40 MG/0.4 ML SYRINGE SUBCUT SCH (21:25)
[2017-04-30] MEDS: INSULIN GLARGINE 100 UNIT/ML SUBCUT SCH (21:26)
[2017-05-01] MEDS: ALBUTEROL/IPRATROPIUM 3 ML NEB RESP TX SCH ×4 (00:13→19:40)
[2017-05-01] MEDS: INSULIN REGULAR 100 UNIT/ML SUBCUT SCH ×4 (00:36→18:29)
[2017-05-01] MEDS: PROPOFOL 1,000 MG/100 ML BOTTLE IV SCH ×9 (02:26→22:12)
[2017-05-01] MEDS: MIDAZOLAM 100 MG in SODIUM CHLORIDE 0.9% 80 ML IV SCH ×2 (02:28→16:18)
[2017-05-01 03:37] LABS: ABG Base Excess 5.1 MMOL/L (-2.5-2.5); ABG Oxygen Saturation 96.9 % (95-100); ABG PCO2 42.4 MM HG (35-48); ABG PH 7.452 (7.35-7.45); ABG PO2 87.5 MM HG (80-95); ABG TCO2 26.2 MMOL/L (23-27)
[2017-05-01 06:07] LABS: Magnesium 2.3 MG/DL (1.8-2.4); Prealbumin 50.6 MG/DL (20-40)
[2017-05-01] MEDS: FUROSEMIDE 20 MG/2 ML VIAL IV SCH (09:59)
[2017-05-01] MEDS: PANTOPRAZOLE 40 MG VIAL IV SCH (09:59)
[2017-05-01] MEDS: SODIUM CHLORIDE 0.9% 1,000 ML IV SCH (10:00)
[2017-05-01] MEDS: FOLIC ACID 1 MG TABLET PO SCH (10:00)
[2017-05-01] MEDS: MONTELUKAST 10 MG TABLET PO SCH ×2 (10:00→22:08)
[2017-05-01] MEDS: guaiFENesin/DM ER 600-30 MG TABLET PO SCH ×2 (10:00→22:08)
[2017-05-01] MEDS: MULTIVITAMIN LIQUID (CENTRUM) 60 ML BOTTLE PER TUBE SCH (10:02)
[2017-05-01] MEDS: SULFAMETHOX/TRIMETHOPRIM 200-40 MG/5 ML -20 ML UDCUP NG SCH (10:06)
[2017-05-01] MEDS: GENVOYA PO SCH (10:06)
[2017-05-01] MEDS: FERRIC GLUCONATE COMPLEX 125 MG in SODIUM CHLORIDE 0.9% 100 ML IV SCH (10:06)
[2017-05-01] MEDS: methylPREDNISolone SOD SUC 40 MG/1 ML VIAL IV SCH (11:47)
[2017-05-01] MEDS: INSULIN GLARGINE 100 UNIT/ML SUBCUT SCH (22:07)
[2017-05-01] MEDS: ENOXAPARIN 40 MG/0.4 ML SYRINGE SUBCUT SCH (22:08)
[2017-05-02] MEDS: INSULIN REGULAR 100 UNIT/ML SUBCUT SCH ×4 (00:29→17:58)
[2017-05-02] MEDS: methylPREDNISolone SOD SUC 40 MG/1 ML VIAL IV SCH ×2 (00:29→12:15)
[2017-05-02] MEDS: PROPOFOL 1,000 MG/100 ML BOTTLE IV SCH ×7 (00:30→22:05)
[2017-05-02] MEDS: ALBUTEROL/IPRATROPIUM 3 ML NEB RESP TX SCH ×4 (00:47→18:13)
[2017-05-02] MEDS: SODIUM CHLORIDE 0.9% 1,000 ML IV SCH ×3 (02:37→17:50)
[2017-05-02 02:56] LABS: ABG Base Excess 5.1 MMOL/L (-2.5-2.5); ABG Oxygen Saturation 98.1 % (95-100); ABG PCO2 45.5 MM HG (35-48); ABG PH 7.437 (7.35-7.45); ABG PO2 112.8 MM HG (80-95); ABG TCO2 31.4 MMOL/L (23-27)
[2017-05-02] MEDS: MORPHINE 2 MG/1 ML SYRINGE IV PRN (04:09)
[2017-05-02 04:33] LABS: Basophils % 0.1 % (0.0-0.8); Eosinophils # 0.1 10*3/uL (0.0-0.87); Hemoglobin 11.7 GM/DL (12.0-16.0); Immature Granulocytes % 0.7 %; Immature Granulocytes Absolute 0.07 #; Lymphocytes # 0.4 10*3/uL (1.4-4.0); Lymphocytes % 4.5 % (21.3-54.2); Mean Corpuscular HGB Conc 31.6 GM/DL (32-36); Mean Corpuscular Hemoglobin 25 PG (27-34); Mean Corpuscular Volume 78.6 FL (87-102); Mean Platelet Volume 9.5 FL (9.6-12.0); Monocytes # 0.8 10*3/uL (0.11-0.8); Monocytes % 8.8 % (1.7-12.7); Neutrophils # 8.1 10*3/uL (1.4-7.4); Neutrophils % 84.9 % (38.7-73.9); Platelet Count 320 T/CUMM (130-400); Red Blood Count 4.71 MC/CUMM (3.8-5.5); Red Cell Distribution Width 17.8 % (9.3-17.3); White Blood Count 9.6 T/CUMM (4-12)
[2017-05-02 05:03] LABS: Calcium 9.1 MG/DL (8.5-10.1); Magnesium 2.1 MG/DL (1.8-2.4); Osmolality,Calculated 282.7 MOS/KG (273-304); Potassium 4.5 MMOL/L (3.5-5.1)
[2017-05-02 05:08] LABS: Albumin 2.9 G/DL (3.4-5.0); Bilirubin,Total 0.6 MG/DL (0.2-1.0); Calcium 9.2 MG/DL (8.5-10.1); Magnesium 2.1 MG/DL (1.8-2.4); Osmolality,Calculated 281.7 MOS/KG (273-304); Potassium 4.6 MMOL/L (3.5-5.1)
[2017-05-02 05:23] LABS: Eosinophils 1 % (0-10); Lymphocytes 9 % (20-55); Segmented Neutrophils 85 % (50-85); Total Cells Counted 100
[2017-05-02 05:25] LABS: Giant Platelets Few; Hypochromasia 1+; Ovalocytes Few; Platelet Estimate Normal; Target Cells Few
[2017-05-02] MEDS: SULFAMETHOX/TRIMETHOPRIM 200-40 MG/5 ML -20 ML UDCUP NG SCH (09:57)
[2017-05-02] MEDS: GENVOYA PO SCH (09:59)
[2017-05-02] MEDS: MULTIVITAMIN LIQUID (CENTRUM) 60 ML BOTTLE PER TUBE SCH (09:59)
[2017-05-02] MEDS: FOLIC ACID 1 MG TABLET PO SCH (10:00)
[2017-05-02] MEDS: MONTELUKAST 10 MG TABLET PO SCH ×2 (10:00→21:04)
[2017-05-02] MEDS: FUROSEMIDE 20 MG/2 ML VIAL IV SCH (10:02)
[2017-05-02] MEDS: FERRIC GLUCONATE COMPLEX 125 MG in SODIUM CHLORIDE 0.9% 100 ML IV SCH (10:12)
[2017-05-02] MEDS: PANTOPRAZOLE 40 MG VIAL IV SCH (10:14)
[2017-05-02] MEDS: guaiFENesin/DM ER 600-30 MG TABLET PO SCH ×2 (12:11→21:04)
[2017-05-02 14:25] LABS: ABG Base Excess 5.6 MMOL/L (-2.5-2.5); ABG HCO3 29.4 MMOL/L (20-26); ABG Oxygen Saturation 96.1 % (95-100); ABG PCO2 44.8 MM HG (35-48); ABG PO2 82.2 MM HG (80-95); ABG TCO2 26.9 MMOL/L (23-27)
[2017-05-02] MEDS: MIDAZOLAM 100 MG in SODIUM CHLORIDE 0.9% 80 ML IV SCH (16:20)
[2017-05-02] MEDS: INSULIN GLARGINE 100 UNIT/ML SUBCUT SCH (21:04)
[2017-05-02] MEDS: ENOXAPARIN 40 MG/0.4 ML SYRINGE SUBCUT SCH (21:04)
[2017-05-03] MEDS: methylPREDNISolone SOD SUC 40 MG/1 ML VIAL IV SCH ×2 (00:03→12:52)
[2017-05-03] MEDS: INSULIN REGULAR 100 UNIT/ML SUBCUT SCH ×4 (00:05→18:24)
[2017-05-03] MEDS: PROPOFOL 1,000 MG/100 ML BOTTLE IV SCH ×6 (00:45→23:16)
[2017-05-03] MEDS: ALBUTEROL/IPRATROPIUM 3 ML NEB RESP TX SCH ×4 (01:25→19:32)
[2017-05-03 03:58] LABS: ABG Base Excess 6.1 MMOL/L (-2.5-2.5); ABG HCO3 31.1 MMOL/L (20-26); ABG Oxygen Saturation 98.3 % (95-100); ABG PCO2 46.5 MM HG (35-48); ABG PH 7.443 (7.35-7.45); ABG TCO2 32.5 MMOL/L (23-27)
[2017-05-03 05:51] LABS: Eosinophils % 0.2 % (0.00-10.9); Hemoglobin 12.5 GM/DL (12.0-16.0); Immature Granulocytes % 0.6 %; Immature Granulocytes Absolute 0.04 #; Lymphocytes # 0.4 10*3/uL (1.4-4.0); Lymphocytes % 6.2 % (21.3-54.2); Mean Corpuscular HGB Conc 31.3 GM/DL (32-36); Mean Corpuscular Hemoglobin 25 PG (27-34); Mean Corpuscular Volume 79.1 FL (87-102); Mean Platelet Volume 9.6 FL (9.6-12.0); Monocytes # 0.3 10*3/uL (0.11-0.8); Monocytes % 4.2 % (1.7-12.7); Neutrophils # 5.7 10*3/uL (1.4-7.4); Neutrophils % 88.8 % (38.7-73.9); Platelet Count 265 T/CUMM (130-400); Red Blood Count 5.06 MC/CUMM (3.8-5.5); Red Cell Distribution Width 18.4 % (9.3-17.3); White Blood Count 6.4 T/CUMM (4-12)
[2017-05-03] MEDS: MIDAZOLAM 100 MG in SODIUM CHLORIDE 0.9% 80 ML IV SCH ×2 (06:03→13:12)
[2017-05-03] MEDS: SODIUM CHLORIDE 0.9% 1,000 ML IV SCH (06:03)
[2017-05-03 06:28] LABS: Albumin 2.9 G/DL (3.4-5.0); Bilirubin,Total 0.7 MG/DL (0.2-1.0); Calcium 9.2 MG/DL (8.5-10.1); Magnesium 2.2 MG/DL (1.8-2.4); Potassium 5.6 MMOL/L (3.5-5.1); Total Protein 6.5 G/DL (6.4-8.3)
[2017-05-03] MEDS: SULFAMETHOX/TRIMETHOPRIM 200-40 MG/5 ML -20 ML UDCUP NG SCH (08:50)
[2017-05-03] MEDS: guaiFENesin/DM ER 600-30 MG TABLET PO SCH ×2 (08:51→21:03)
[2017-05-03] MEDS: MONTELUKAST 10 MG TABLET PO SCH ×2 (08:51→21:03)
[2017-05-03] MEDS: GENVOYA PO SCH (08:51)
[2017-05-03] MEDS: FOLIC ACID 1 MG TABLET PO SCH (08:52)
[2017-05-03] MEDS: FUROSEMIDE 20 MG/2 ML VIAL IV SCH (08:59)
[2017-05-03] MEDS: PANTOPRAZOLE 40 MG VIAL IV SCH (09:04)
[2017-05-03 09:59] LABS: ABG Base Excess 7.3 MMOL/L (-2.5-2.5); ABG HCO3 30.9 MMOL/L (20-26); ABG PH 7.399 (7.35-7.45); ABG PO2 67.1 MM HG (80-95); ABG TCO2 29.9 MMOL/L (23-27)
[2017-05-03] MEDS ORDERED: INSULIN GLARGINE 100 UNIT/ML SUBCUT SCH (10:53)
[2017-05-03] MEDS: MULTIVITAMIN LIQUID (CENTRUM) 60 ML BOTTLE PER TUBE SCH (13:03)
[2017-05-03] MEDS: ENOXAPARIN 40 MG/0.4 ML SYRINGE SUBCUT SCH (21:03)
[2017-05-04] MEDS: INSULIN REGULAR 100 UNIT/ML SUBCUT SCH ×4 (00:14→17:44)
[2017-05-04] MEDS: methylPREDNISolone SOD SUC 40 MG/1 ML VIAL IV SCH ×3 (00:15→22:35)
[2017-05-04] MEDS: ALBUTEROL/IPRATROPIUM 3 ML NEB RESP TX SCH ×4 (01:07→19:33)
[2017-05-04] MEDS: PROPOFOL 1,000 MG/100 ML BOTTLE IV SCH ×6 (01:52→22:45)
[2017-05-04 03:25] LABS: ABG Base Excess 6.8 MMOL/L (-2.5-2.5); ABG HCO3 30.6 MMOL/L (20-26); ABG Oxygen Saturation 97.2 % (95-100); ABG PH 7.492 (7.35-7.45); ABG PO2 87.8 MM HG (80-95); ABG TCO2 26.8 MMOL/L (23-27); Allen Test Positive; Pt O2 Delivery Device Ventilator
[2017-05-04] MEDS: MIDAZOLAM 100 MG in SODIUM CHLORIDE 0.9% 80 ML IV SCH ×3 (03:31→22:46)
[2017-05-04 06:07] LABS: Basophils % 0.2 % (0.0-0.8); Hematocrit 36.7 VOL% (35.7-47.0); Hemoglobin 11.7 GM/DL (12.0-16.0); Immature Granulocytes % 0.5 %; Immature Granulocytes Absolute 0.03 #; Lymphocytes # 0.3 10*3/uL (1.4-4.0); Lymphocytes % 4.4 % (21.3-54.2); Mean Corpuscular HGB Conc 31.9 GM/DL (32-36); Mean Corpuscular Hemoglobin 25 PG (27-34); Mean Corpuscular Volume 77.8 FL (87-102); Monocytes # 0.4 10*3/uL (0.11-0.8); Monocytes % 6.1 % (1.7-12.7); Neutrophils # 5.1 10*3/uL (1.4-7.4); Neutrophils % 88.8 % (38.7-73.9); Platelet Count 282 T/CUMM (130-400); Red Blood Count 4.72 MC/CUMM (3.8-5.5); Red Cell Distribution Width 17.6 % (9.3-17.3); White Blood Count 5.7 T/CUMM (4-12)
[2017-05-04 06:15] LABS: Apearance,Urine CLOUDY (Clear); Bilirubin,Urine Negative (Negative); Blood, Urine Negative (Negative); Glucose,Urine (UA) Negative (Negative); Ketones,Urine Negative (Negative); Mucus,Urine Occasional /LPF (Occasional); Nitrite,Urine Negative (Negative); Protein,Urine 30 MG/DL; RBC,Urine 186 /HPF (0-4); Urine Color Yellow (Yellow); Urine Specific Gravity 1.029 (1.001-1.035)
[2017-05-04 06:32] LABS: Band Neutrophils 1 % (0-10); Giant Platelets Few; Hypochromasia 1+; Lymphocytes 10 % (20-55); Platelet Estimate Adequate; Segmented Neutrophils 85 % (50-85); Total Cells Counted 100
[2017-05-04 06:41] LABS: Magnesium 2.2 MG/DL (1.8-2.4)
[2017-05-04 06:48] LABS: Calcium 9.2 MG/DL (8.5-10.1); Magnesium 2.2 MG/DL (1.8-2.4); Osmolality,Calculated 288.7 MOS/KG (273-304); Potassium 4.4 MMOL/L (3.5-5.1)
[2017-05-04] MEDS: MULTIVITAMIN LIQUID (CENTRUM) 60 ML BOTTLE PER TUBE SCH (09:03)
[2017-05-04] MEDS: SULFAMETHOX/TRIMETHOPRIM 200-40 MG/5 ML -20 ML UDCUP NG SCH (09:03)
[2017-05-04] MEDS: GENVOYA PO SCH (09:03)
[2017-05-04] MEDS: FOLIC ACID 1 MG TABLET PO SCH (09:04)
[2017-05-04] MEDS: MONTELUKAST 10 MG TABLET PO SCH ×2 (09:04→22:00)
[2017-05-04] MEDS: guaiFENesin/DM ER 600-30 MG TABLET PO SCH ×2 (09:04→22:00)
[2017-05-04] MEDS: FUROSEMIDE 20 MG/2 ML VIAL IV SCH (09:20)
[2017-05-04] MEDS: PANTOPRAZOLE 40 MG VIAL IV SCH (09:26)
[2017-05-04 17:27] LABS: Apearance,Urine CLOUDY (Clear); Bilirubin,Urine Negative (Negative); Blood, Urine Small mg/dL (Negative); Glucose,Urine (UA) Negative (Negative); Ketones,Urine Negative (Negative); Mucus,Urine Occasional /LPF (Occasional); Nitrite,Urine Negative (Negative); Protein,Urine 30 MG/DL; RBC,Urine 54 /HPF (0-4); Squamous Epithelial Cell,Urine Occasional /HPF (0-10); Urine Color Yellow (Yellow); Urine Specific Gravity 1.028 (1.001-1.035); Urine Urobilinogen < 2.0 EU/DL (0.2-1.0); WBC,Urine 82 /HPF (0-6)
[2017-05-04] MEDS: ENOXAPARIN 40 MG/0.4 ML SYRINGE SUBCUT SCH (22:00)
[2017-05-04] MEDS: INSULIN GLARGINE 100 UNIT/ML SUBCUT SCH (22:36)
[2017-05-05] MEDS: INSULIN REGULAR 100 UNIT/ML SUBCUT SCH ×4 (00:34→18:17)
[2017-05-05] MEDS: ALBUTEROL/IPRATROPIUM 3 ML NEB RESP TX SCH ×4 (01:40→19:25)
[2017-05-05] MEDS: PROPOFOL 1,000 MG/100 ML BOTTLE IV SCH ×6 (03:45→22:39)
[2017-05-05 04:53] LABS: ABG Base Excess 8.6 MMOL/L (-2.5-2.5); ABG HCO3 31.5 MMOL/L (20-26); ABG PCO2 37.2 MM HG (35-48); ABG PH 7.545 (7.35-7.45); ABG PO2 103.7 MM HG (80-95); ABG TCO2 32.6 MMOL/L (23-27); Allen Test Positive; Pt O2 Delivery Device Ventilator
[2017-05-05 05:01] LABS: Eosinophils % 0.3 % (0.00-10.9); Hematocrit 41.1 VOL% (35.7-47.0); Hemoglobin 13.1 GM/DL (12.0-16.0); Immature Granulocytes % 0.4 %; Immature Granulocytes Absolute 0.03 #; Lymphocytes # 0.6 10*3/uL (1.4-4.0); Lymphocytes % 8.4 % (21.3-54.2); Mean Corpuscular HGB Conc 31.9 GM/DL (32-36); Mean Corpuscular Hemoglobin 25 PG (27-34); Mean Corpuscular Volume 78.6 FL (87-102); Mean Platelet Volume 9.5 FL (9.6-12.0); Monocytes # 0.7 10*3/uL (0.11-0.8); Monocytes % 10.6 % (1.7-12.7); Neutrophils # 5.4 10*3/uL (1.4-7.4); Neutrophils % 80.3 % (38.7-73.9); Platelet Count 298 T/CUMM (130-400); Red Blood Count 5.23 MC/CUMM (3.8-5.5); Red Cell Distribution Width 18.2 % (9.3-17.3); White Blood Count 6.7 T/CUMM (4-12)
[2017-05-05 05:40] LABS: Albumin 3.1 G/DL (3.4-5.0); Bilirubin,Total 0.8 MG/DL (0.2-1.0); Calcium 9.6 MG/DL (8.5-10.1); Magnesium 2.3 MG/DL (1.8-2.4); Osmolality,Calculated 282.1 MOS/KG (273-304); Potassium 5.6 MMOL/L (3.5-5.1)
[2017-05-05] MEDS: PANTOPRAZOLE 40 MG VIAL IV SCH (09:15)
[2017-05-05] MEDS: FUROSEMIDE 20 MG/2 ML VIAL IV SCH (09:30)
[2017-05-05] MEDS: methylPREDNISolone SOD SUC 40 MG/1 ML VIAL IV SCH ×3 (09:30→22:34)
[2017-05-05] MEDS: SULFAMETHOX/TRIMETHOPRIM 200-40 MG/5 ML -20 ML UDCUP NG SCH (10:24)
[2017-05-05] MEDS: MULTIVITAMIN LIQUID (CENTRUM) 60 ML BOTTLE PER TUBE SCH (10:25)
[2017-05-05] MEDS: GENVOYA PO SCH ×3 (10:25→10:34)
[2017-05-05] MEDS: MONTELUKAST 10 MG TABLET PO SCH ×2 (10:26→22:34)
[2017-05-05] MEDS: guaiFENesin/DM ER 600-30 MG TABLET PO SCH ×2 (10:26→22:38)
[2017-05-05] MEDS: FOLIC ACID 1 MG TABLET PO SCH (10:26)
[2017-05-05] MEDS: cloNIDine 0.3 MG/24 HR PATCH TRANSDERM SCH (12:46)
[2017-05-05] MEDS: MIDAZOLAM 100 MG in SODIUM CHLORIDE 0.9% 80 ML IV SCH (12:47)
[2017-05-05] MEDS ORDERED: SODIUM POLYSTYRENE SULFATE 15 GM/60 ML BOTTLE PO ONE (16:37)
[2017-05-05] MEDS: FLUCONAZOLE INJ 200 MG in PREMIX 1 EACH IV SCH (18:16)
[2017-05-05] MEDS: ENOXAPARIN 40 MG/0.4 ML SYRINGE SUBCUT SCH (22:36)
[2017-05-05] MEDS: INSULIN GLARGINE 100 UNIT/ML SUBCUT SCH (22:38)
[2017-05-06] MEDS: INSULIN REGULAR 100 UNIT/ML SUBCUT SCH ×4 (00:03→18:35)
[2017-05-06] MEDS: ALBUTEROL/IPRATROPIUM 3 ML NEB RESP TX SCH ×4 (00:11→19:31)
[2017-05-06] MEDS: PROPOFOL 1,000 MG/100 ML BOTTLE IV SCH ×7 (01:30→22:04)
[2017-05-06 03:51] LABS: Allen Test Positive; Pt O2 Delivery Device Ventilator
[2017-05-06 03:52] LABS: ABG HCO3 30.8 MMOL/L (20-26); ABG Oxygen Saturation 99.4 % (95-100); ABG PCO2 40.7 MM HG (35-48); ABG PH 7.489 (7.35-7.45); ABG TCO2 27.1 MMOL/L (23-27)
[2017-05-06 04:59] LABS: Basophils % 0.2 % (0.0-0.8); Eosinophils # 0.1 10*3/uL (0.0-0.87); Eosinophils % 0.8 % (0.00-10.9); Hematocrit 38.7 VOL% (35.7-47.0); Hemoglobin 12.1 GM/DL (12.0-16.0); Immature Granulocytes % 0.5 %; Immature Granulocytes Absolute 0.03 #; Lymphocytes # 0.5 10*3/uL (1.4-4.0); Lymphocytes % 7.3 % (21.3-54.2); Mean Corpuscular HGB Conc 31.3 GM/DL (32-36); Mean Corpuscular Hemoglobin 25 PG (27-34); Mean Corpuscular Volume 79.1 FL (87-102); Mean Platelet Volume 9.7 FL (9.6-12.0); Monocytes # 0.7 10*3/uL (0.11-0.8); Monocytes % 11.6 % (1.7-12.7); Neutrophils # 4.9 10*3/uL (1.4-7.4); Neutrophils % 79.6 % (38.7-73.9); Platelet Count 303 T/CUMM (130-400); Red Blood Count 4.89 MC/CUMM (3.8-5.5); Red Cell Distribution Width 18.5 % (9.3-17.3); White Blood Count 6.1 T/CUMM (4-12)
[2017-05-06] MEDS: MIDAZOLAM 100 MG in SODIUM CHLORIDE 0.9% 80 ML IV SCH ×2 (05:21→22:03)
[2017-05-06 05:39] LABS: Calcium 8.9 MG/DL (8.5-10.1); Potassium 4.6 MMOL/L (3.5-5.1)
[2017-05-06] MEDS: PANTOPRAZOLE 40 MG VIAL IV SCH (09:00)
[2017-05-06] MEDS: methylPREDNISolone SOD SUC 40 MG/1 ML VIAL IV SCH ×2 (09:10→22:01)
[2017-05-06] MEDS ORDERED: LIDOCAINE 1%/EPI INJ 20 ML VIAL ONE (09:59)
[2017-05-06] MEDS: SULFAMETHOX/TRIMETHOPRIM 200-40 MG/5 ML -20 ML UDCUP NG SCH ×2 (11:10→16:43)
[2017-05-06] MEDS: MULTIVITAMIN LIQUID (CENTRUM) 60 ML BOTTLE PER TUBE SCH (11:10)
[2017-05-06] MEDS: GENVOYA PO SCH ×2 (11:10→16:43)
[2017-05-06] MEDS: FOLIC ACID 1 MG TABLET PO SCH ×2 (11:11→16:42)
[2017-05-06] MEDS: guaiFENesin/DM ER 600-30 MG TABLET PO SCH ×2 (11:11→22:02)
[2017-05-06] MEDS: MONTELUKAST 10 MG TABLET PO SCH ×2 (11:11→22:02)
[2017-05-06] MEDS ORDERED: MIDAZOLAM 2 MG/2 ML VIAL ONE (11:49)
[2017-05-06] MEDS ORDERED: ROCURONIUM 100 MG/10 ML VIAL IV ONE (11:49)
[2017-05-06] MEDS ORDERED: fentaNYL 100 MCG/2 ML VIAL ONE (11:49)
[2017-05-06] MEDS ORDERED: GLYCOPYRROLATE 0.4 MG/2 ML VIAL ONE (11:49)
[2017-05-06] MEDS: INSULIN LISPRO 100 UNIT/ML SUBCUT SCH (18:36)
[2017-05-06] MEDS: FLUCONAZOLE INJ 200 MG in PREMIX 1 EACH IV SCH (18:36)
[2017-05-06] MEDS: INSULIN GLARGINE 100 UNIT/ML SUBCUT SCH (22:01)
[2017-05-07] MEDS: INSULIN LISPRO 100 UNIT/ML SUBCUT SCH ×5 (00:18→23:45)
[2017-05-07] MEDS: INSULIN REGULAR 100 UNIT/ML SUBCUT SCH ×5 (00:18→23:07)
[2017-05-07] MEDS: ALBUTEROL/IPRATROPIUM 3 ML NEB RESP TX SCH ×4 (01:41→20:51)
[2017-05-07] MEDS: PROPOFOL 1,000 MG/100 ML BOTTLE IV SCH ×4 (03:00→23:42)
[2017-05-07 03:03] LABS: ABG Base Excess 5.4 MMOL/L (-2.5-2.5); ABG HCO3 29.3 MMOL/L (20-26); ABG Oxygen Saturation 99.2 % (95-100); ABG PCO2 39.8 MM HG (35-48); ABG PH 7.476 (7.35-7.45); Pt O2 Delivery Device Ventilator
[2017-05-07 04:36] LABS: Basophils % 0.1 % (0.0-0.8); Eosinophils # 0.1 10*3/uL (0.0-0.87); Eosinophils % 0.8 % (0.00-10.9); Hematocrit 37.4 VOL% (35.7-47.0); Hemoglobin 11.8 GM/DL (12.0-16.0); Immature Granulocytes % 0.7 %; Immature Granulocytes Absolute 0.06 #; Lymphocytes # 0.4 10*3/uL (1.4-4.0); Lymphocytes % 4.3 % (21.3-54.2); Mean Corpuscular HGB Conc 31.6 GM/DL (32-36); Mean Corpuscular Hemoglobin 25 PG (27-34); Mean Corpuscular Volume 79.4 FL (87-102); Mean Platelet Volume 10.5 FL (9.6-12.0); Monocytes # 0.6 10*3/uL (0.11-0.8); Monocytes % 6.7 % (1.7-12.7); Neutrophils # 7.5 10*3/uL (1.4-7.4); Neutrophils % 87.4 % (38.7-73.9); Platelet Count 270 T/CUMM (130-400); Red Blood Count 4.71 MC/CUMM (3.8-5.5); Red Cell Distribution Width 18.6 % (9.3-17.3); White Blood Count 8.6 T/CUMM (4-12)
[2017-05-07 04:53] LABS: PT Patient Result 10.6 SECS
[2017-05-07 05:04] LABS: Calcium 8.5 MG/DL (8.5-10.1); Potassium 4.6 MMOL/L (3.5-5.1)
[2017-05-07 05:18] LABS: Eosinophils 1 % (0-10); Giant Platelets Few; Hypochromasia 1+; Lymphocytes 4 % (20-55); Platelet Estimate Adequate; Segmented Neutrophils 91 % (50-85); Total Cells Counted 100
[2017-05-07] MEDS: methylPREDNISolone SOD SUC 40 MG/1 ML VIAL IV SCH ×2 (09:36→23:53)
[2017-05-07] MEDS: PANTOPRAZOLE 40 MG VIAL IV SCH (09:45)
[2017-05-07] MEDS ORDERED: DILTIAZEM 50 MG/10 ML VIAL IV ONE ×3 (10:52→20:47)
[2017-05-07] MEDS: HYDROmorphone 2 MG/1 ML VIAL IV PRN (11:22)
[2017-05-07] MEDS ORDERED: PROPOFOL 200 MG/20 ML VIAL IV ONE (12:02)
[2017-05-07] MEDS ORDERED: DILTIAZEM 60 MG TABLET PO SCH (13:00)
[2017-05-07] MEDS: MIDAZOLAM 100 MG in SODIUM CHLORIDE 0.9% 80 ML IV SCH (19:35)
[2017-05-07] MEDS ORDERED: DILTIAZEM 100 MG VIAL.ADD IV ONE (20:41)
[2017-05-07] MEDS: DILTIAZEM INJ 100 MG in SODIUM CHLORIDE 0.9% 100 ML IV SCH (20:46)
[2017-05-07] MEDS ORDERED: LORazepam 2 MG/1 ML VIAL ONE ×2 (20:48→20:53)
[2017-05-07] MEDS ORDERED: HALOPERIDOL 5 MG/ML AMP IV ONE (20:48)
[2017-05-07] MEDS ORDERED: LORazepam 2 MG/1 ML VIAL IV ONE (20:48)
[2017-05-07] MEDS: PHENYLEPHRINE DRIP 40 MG/250 ML PREMIX IV SCH (22:25)
[2017-05-07] MEDS: DILTIAZEM 60 MG TABLET PO SCH (23:00)
[2017-05-07] MEDS: INSULIN GLARGINE 100 UNIT/ML SUBCUT SCH (23:07)
[2017-05-07] MEDS: guaiFENesin/DM ER 600-30 MG TABLET PO SCH (23:53)
[2017-05-07] MEDS: MONTELUKAST 10 MG TABLET PO SCH (23:53)
[2017-05-08] MEDS: PHENYLEPHRINE DRIP 40 MG/250 ML PREMIX IV SCH ×2 (03:46→22:44)
[2017-05-08] MEDS: PROPOFOL 1,000 MG/100 ML BOTTLE IV SCH ×5 (03:46→22:31)
[2017-05-08] MEDS: ALBUTEROL/IPRATROPIUM 3 ML NEB RESP TX SCH ×4 (04:39→20:14)
[2017-05-08 04:43] LABS: ABG HCO3 26.2 MMOL/L (20-26); ABG Oxygen Saturation 98.5 % (95-100); ABG PCO2 50.4 MM HG (35-48); ABG PH 7.357 (7.35-7.45); ABG TCO2 25.4 MMOL/L (23-27)
[2017-05-08 05:16] LABS: Basophils # 0.1 10*3/uL (0.0-0.2); Basophils % 0.2 % (0.0-0.8); Eosinophils # 0.1 10*3/uL (0.0-0.87); Eosinophils % 0.3 % (0.00-10.9); Hematocrit 36.7 VOL% (35.7-47.0); Hemoglobin 11.2 GM/DL (12.0-16.0); Immature Granulocytes % 2.2 %; Immature Granulocytes Absolute 0.66 #; Lymphocytes # 0.7 10*3/uL (1.4-4.0); Lymphocytes % 2.4 % (21.3-54.2); Mean Corpuscular HGB Conc 30.5 GM/DL (32-36); Mean Corpuscular Hemoglobin 25 PG (27-34); Mean Corpuscular Volume 82.7 FL (87-102); Mean Platelet Volume 10.4 FL (9.6-12.0); Monocytes # 1.2 10*3/uL (0.11-0.8); Monocytes % 4.1 % (1.7-12.7); Neutrophils # 27.1 10*3/uL (1.4-7.4); Neutrophils % 90.8 % (38.7-73.9); Platelet Count 233 T/CUMM (130-400); Red Blood Count 4.44 MC/CUMM (3.8-5.5)
[2017-05-08 05:28] LABS: White Blood Count 29.9 T/CUMM (4-12)
[2017-05-08] MEDS: INSULIN REGULAR 100 UNIT/ML SUBCUT SCH ×3 (05:36→18:49)
[2017-05-08] MEDS: INSULIN LISPRO 100 UNIT/ML SUBCUT SCH ×3 (05:37→18:50)
[2017-05-08 05:38] LABS: Calcium 8.7 MG/DL (8.5-10.1); Osmolality,Calculated 290.8 MOS/KG (273-304); Potassium 4.8 MMOL/L (3.5-5.1)
[2017-05-08 05:42] LABS: Band Neutrophils 4 % (0-10); Giant Platelets Few; Hypochromasia 1+; Lymphocytes 1 % (20-55); Magnesium 2.2 MG/DL (1.8-2.4); Platelet Estimate Adequate; Prealbumin 31.7 MG/DL (20-40); Segmented Neutrophils 93 % (50-85); Total Cells Counted 100
[2017-05-08] MEDS: MULTIVITAMIN LIQUID (CENTRUM) 60 ML BOTTLE PER TUBE SCH ×2 (07:04→12:30)
[2017-05-08] MEDS: SULFAMETHOX/TRIMETHOPRIM 200-40 MG/5 ML -20 ML UDCUP NG SCH ×2 (07:04→12:30)
[2017-05-08] MEDS: GENVOYA PO SCH ×2 (07:04→12:30)
[2017-05-08] MEDS: guaiFENesin/DM ER 600-30 MG TABLET PO SCH ×3 (07:05→20:55)
[2017-05-08] MEDS: MONTELUKAST 10 MG TABLET PO SCH ×3 (07:05→20:56)
[2017-05-08] MEDS: FOLIC ACID 1 MG TABLET PO SCH ×2 (07:05→12:30)
[2017-05-08] MEDS: FLUCONAZOLE INJ 200 MG in PREMIX 1 EACH IV SCH ×2 (07:10→18:43)
[2017-05-08] MEDS: DILTIAZEM 60 MG TABLET PO SCH ×4 (07:12→20:58)
[2017-05-08] MEDS ORDERED: MIDAZOLAM 2 MG/2 ML VIAL ONE (08:22)
[2017-05-08] MEDS ORDERED: ROCURONIUM 100 MG/10 ML VIAL IV ONE (08:22)
[2017-05-08] MEDS ORDERED: fentaNYL 100 MCG/2 ML VIAL ONE ×2 (08:22→10:12)
[2017-05-08] MEDS ORDERED: SEVOFLURANE 1 UNIT/15 MINUTE INH ONE (10:12)
[2017-05-08] MEDS: MIDAZOLAM 100 MG in SODIUM CHLORIDE 0.9% 80 ML IV SCH (11:59)
[2017-05-08] MEDS: methylPREDNISolone SOD SUC 40 MG/1 ML VIAL IV SCH (12:04)
[2017-05-08] MEDS: PANTOPRAZOLE 40 MG VIAL IV SCH (12:08)
[2017-05-08 19:36] LABS: Apearance,Urine Slightly Hazy (Clear); Bacteria,Urine Occasional /HPF (Few); Bilirubin,Urine Negative (Negative); Blood, Urine Moderate mg/dL (Negative); Glucose,Urine (UA) >=500 mg/dL (Negative); Ketones,Urine 20 mg/dL (Negative); Mucus,Urine Occasional /LPF (Occasional); Nitrite,Urine Negative (Negative); Protein,Urine 30 MG/DL; RBC,Urine 53 /HPF (0-4); Squamous Epithelial Cell,Urine Occasional /HPF (0-10); Urine Color Yellow (Yellow); Urine Specific Gravity 1.026 (1.001-1.035); Urine Urobilinogen < 2.0 EU/DL (0.2-1.0); WBC,Urine 14 /HPF (0-6)
[2017-05-08] MEDS: DILTIAZEM INJ 100 MG in SODIUM CHLORIDE 0.9% 100 ML IV SCH (20:59)
[2017-05-08] MEDS: INSULIN GLARGINE 100 UNIT/ML SUBCUT SCH (22:41)
[2017-05-09] MEDS: INSULIN LISPRO 100 UNIT/ML SUBCUT SCH ×4 (00:29→17:31)
[2017-05-09] MEDS: INSULIN REGULAR 100 UNIT/ML SUBCUT SCH ×4 (00:30→19:19)
[2017-05-09] MEDS: MIDAZOLAM 100 MG in SODIUM CHLORIDE 0.9% 80 ML IV SCH ×2 (00:33→15:47)
[2017-05-09] MEDS: ALBUTEROL/IPRATROPIUM 3 ML NEB RESP TX SCH ×4 (00:49→19:29)
[2017-05-09] MEDS: PROPOFOL 1,000 MG/100 ML BOTTLE IV SCH ×5 (01:01→21:30)
[2017-05-09 04:15] LABS: ABG Base Excess 1.8 MMOL/L (-2.5-2.5); ABG PCO2 33.3 MM HG (35-48); ABG PH 7.479 (7.35-7.45); ABG TCO2 21.7 MMOL/L (23-27); Allen Test Positive; Pt O2 Delivery Device Ventilator
[2017-05-09 04:17] LABS: Basophils % 0.1 % (0.0-0.8); Eosinophils # 0.1 10*3/uL (0.0-0.87); Eosinophils % 0.8 % (0.00-10.9); Hematocrit 37.2 VOL% (35.7-47.0); Hemoglobin 11.7 GM/DL (12.0-16.0); Immature Granulocytes Absolute 0.12 #; Lymphocytes # 0.8 10*3/uL (1.4-4.0); Lymphocytes % 6.6 % (21.3-54.2); Mean Corpuscular HGB Conc 31.5 GM/DL (32-36); Mean Corpuscular Hemoglobin 25 PG (27-34); Mean Corpuscular Volume 80.5 FL (87-102); Mean Platelet Volume 10.6 FL (9.6-12.0); Monocytes # 0.9 10*3/uL (0.11-0.8); Monocytes % 7.1 % (1.7-12.7); Neutrophils # 10.7 10*3/uL (1.4-7.4); Neutrophils % 84.4 % (38.7-73.9); Platelet Count 239 T/CUMM (130-400); Red Blood Count 4.62 MC/CUMM (3.8-5.5); Red Cell Distribution Width 19.2 % (9.3-17.3); White Blood Count 12.6 T/CUMM (4-12)
[2017-05-09 04:32] LABS: Calcium 9.6 MG/DL (8.5-10.1); Osmolality,Calculated 295.8 MOS/KG (273-304); Potassium 3.6 MMOL/L (3.5-5.1)
[2017-05-09] MEDS: SULFAMETHOX/TRIMETHOPRIM 200-40 MG/5 ML -20 ML UDCUP NG SCH (10:26)
[2017-05-09] MEDS: MULTIVITAMIN LIQUID (CENTRUM) 60 ML BOTTLE PER TUBE SCH (10:28)
[2017-05-09] MEDS: GENVOYA PO SCH (10:30)
[2017-05-09] MEDS: DILTIAZEM 60 MG TABLET PO SCH ×4 (10:32→20:35)
[2017-05-09] MEDS: FOLIC ACID 1 MG TABLET PO SCH (10:32)
[2017-05-09] MEDS: guaiFENesin/DM ER 600-30 MG TABLET PO SCH ×2 (10:32→20:35)
[2017-05-09] MEDS: MONTELUKAST 10 MG TABLET PO SCH ×2 (10:33→20:35)
[2017-05-09] MEDS: PANTOPRAZOLE 40 MG VIAL IV SCH (10:33)
[2017-05-09] MEDS: methylPREDNISolone SOD SUC 40 MG/1 ML VIAL IV SCH (10:34)
[2017-05-09] MEDS: FLUCONAZOLE INJ 200 MG in PREMIX 1 EACH IV SCH (17:36)
[2017-05-09] MEDS: INSULIN GLARGINE 100 UNIT/ML SUBCUT SCH (20:35)
[2017-05-09] MEDS: DILTIAZEM INJ 100 MG in SODIUM CHLORIDE 0.9% 100 ML IV SCH (21:21)
[2017-05-09] MEDS: PHENYLEPHRINE DRIP 40 MG/250 ML PREMIX IV SCH (23:24)
[2017-05-10] MEDS: INSULIN LISPRO 100 UNIT/ML SUBCUT SCH ×4 (00:34→17:32)
[2017-05-10] MEDS: INSULIN REGULAR 100 UNIT/ML SUBCUT SCH ×4 (00:35→17:32)
[2017-05-10] MEDS: ALBUTEROL/IPRATROPIUM 3 ML NEB RESP TX SCH ×4 (02:11→19:45)
[2017-05-10] MEDS: PROPOFOL 1,000 MG/100 ML BOTTLE IV SCH ×6 (03:15→23:26)
[2017-05-10] MEDS: MIDAZOLAM 100 MG in SODIUM CHLORIDE 0.9% 80 ML IV SCH (04:09)
[2017-05-10 04:54] LABS: ABG Base Excess 1.7 MMOL/L (-2.5-2.5); ABG HCO3 25.9 MMOL/L (20-26); ABG PCO2 30.2 MM HG (35-48); ABG PH 7.509 (7.35-7.45); ABG TCO2 21.4 MMOL/L (23-27); Pt O2 Delivery Device Ventilator
[2017-05-10 05:21] LABS: Eosinophils # 0.1 10*3/uL (0.0-0.87); Eosinophils % 1.7 % (0.00-10.9); Hematocrit 36.2 VOL% (35.7-47.0); Hemoglobin 11.1 GM/DL (12.0-16.0); Immature Granulocytes % 0.7 %; Immature Granulocytes Absolute 0.05 #; Lymphocytes # 0.7 10*3/uL (1.4-4.0); Lymphocytes % 9.9 % (21.3-54.2); Mean Corpuscular HGB Conc 30.7 GM/DL (32-36); Mean Corpuscular Hemoglobin 25 PG (27-34); Mean Corpuscular Volume 82.1 FL (87-102); Mean Platelet Volume 10.7 FL (9.6-12.0); Monocytes # 0.7 10*3/uL (0.11-0.8); Neutrophils # 5.9 10*3/uL (1.4-7.4); Neutrophils % 78.7 % (38.7-73.9); Platelet Count 214 T/CUMM (130-400); Red Blood Count 4.41 MC/CUMM (3.8-5.5); Red Cell Distribution Width 19.7 % (9.3-17.3); White Blood Count 7.5 T/CUMM (4-12)
[2017-05-10 06:08] LABS: Calcium 9.3 MG/DL (8.5-10.1); Osmolality,Calculated 301.3 MOS/KG (273-304); Potassium 3.5 MMOL/L (3.5-5.1)
[2017-05-10] MEDS: MULTIVITAMIN LIQUID (CENTRUM) 60 ML BOTTLE PER TUBE SCH (09:11)
[2017-05-10] MEDS: SULFAMETHOX/TRIMETHOPRIM 200-40 MG/5 ML -20 ML UDCUP NG SCH (09:12)
[2017-05-10] MEDS: GENVOYA PO SCH (09:13)
[2017-05-10] MEDS: methylPREDNISolone SOD SUC 40 MG/1 ML VIAL IV SCH (09:15)
[2017-05-10] MEDS: PANTOPRAZOLE 40 MG VIAL IV SCH (09:16)
[2017-05-10] MEDS: DILTIAZEM 60 MG TABLET PO SCH ×4 (09:17→21:18)
[2017-05-10] MEDS: guaiFENesin/DM ER 600-30 MG TABLET PO SCH ×2 (09:18→21:18)
[2017-05-10] MEDS: MONTELUKAST 10 MG TABLET PO SCH ×2 (09:18→21:18)
[2017-05-10] MEDS: FOLIC ACID 1 MG TABLET PO SCH (09:18)
[2017-05-10] MEDS: DEXTROSE 5% NACL 0.22% 1,000 ML IV SCH (14:44)
[2017-05-10] MEDS: INSULIN GLARGINE 100 UNIT/ML SUBCUT SCH (21:18)
[2017-05-11] MEDS: ALBUTEROL/IPRATROPIUM 3 ML NEB RESP TX SCH ×4 (00:38→20:24)
[2017-05-11] MEDS: INSULIN REGULAR 100 UNIT/ML SUBCUT SCH ×4 (00:41→18:00)
[2017-05-11] MEDS: INSULIN LISPRO 100 UNIT/ML SUBCUT SCH ×4 (00:41→18:00)
[2017-05-11] MEDS: DEXTROSE 5% NACL 0.22% 1,000 ML IV SCH ×3 (00:42→13:28)
[2017-05-11] MEDS: MIDAZOLAM 100 MG in SODIUM CHLORIDE 0.9% 80 ML IV SCH (01:07)
[2017-05-11] MEDS: PROPOFOL 1,000 MG/100 ML BOTTLE IV SCH ×6 (03:10→21:37)
[2017-05-11 03:24] LABS: ABG Base Excess 1.3 MMOL/L (-2.5-2.5); ABG HCO3 25.6 MMOL/L (20-26); ABG Oxygen Saturation 99.5 % (95-100); ABG PCO2 27.1 MM HG (35-48); ABG PH 7.536 (7.35-7.45); ABG TCO2 20.5 MMOL/L (23-27); Allen Test Positive; Pt O2 Delivery Device Ventilator
[2017-05-11 04:23] LABS: Basophils % 0.1 % (0.0-0.8); Eosinophils # 0.3 10*3/uL (0.0-0.87); Eosinophils % 3.8 % (0.00-10.9); Hematocrit 33.5 VOL% (35.7-47.0); Hemoglobin 10.7 GM/DL (12.0-16.0); Immature Granulocytes % 0.7 %; Immature Granulocytes Absolute 0.05 #; Lymphocytes # 1.1 10*3/uL (1.4-4.0); Lymphocytes % 14.8 % (21.3-54.2); Mean Corpuscular HGB Conc 31.9 GM/DL (32-36); Mean Corpuscular Hemoglobin 26 PG (27-34); Mean Corpuscular Volume 79.8 FL (87-102); Mean Platelet Volume 9.5 FL (9.6-12.0); Monocytes # 0.8 10*3/uL (0.11-0.8); Monocytes % 11.6 % (1.7-12.7); Neutrophils # 4.9 10*3/uL (1.4-7.4); Platelet Count 183 T/CUMM (130-400); Red Cell Distribution Width 19.4 % (9.3-17.3); White Blood Count 7.1 T/CUMM (4-12)
[2017-05-11 04:53] LABS: Calcium 8.9 MG/DL (8.5-10.1); Potassium 3.4 MMOL/L (3.5-5.1)
[2017-05-11] MEDS: GENVOYA PO SCH (09:55)
[2017-05-11] MEDS: MULTIVITAMIN LIQUID (CENTRUM) 60 ML BOTTLE PER TUBE SCH (09:56)
[2017-05-11] MEDS: SULFAMETHOX/TRIMETHOPRIM 200-40 MG/5 ML -20 ML UDCUP NG SCH (09:56)
[2017-05-11] MEDS: DILTIAZEM 60 MG TABLET PO SCH ×4 (09:57→22:05)
[2017-05-11] MEDS: guaiFENesin/DM ER 600-30 MG TABLET PO SCH ×2 (09:58→22:05)
[2017-05-11] MEDS: FOLIC ACID 1 MG TABLET PO SCH (09:58)
[2017-05-11] MEDS: MONTELUKAST 10 MG TABLET PO SCH ×2 (09:58→22:04)
[2017-05-11] MEDS: PANTOPRAZOLE 40 MG VIAL IV SCH (10:01)
[2017-05-11] MEDS: methylPREDNISolone SOD SUC 40 MG/1 ML VIAL IV SCH (10:03)
[2017-05-11] MEDS ORDERED: MAGNESIUM CITRATE 300 ML BOTTLE PO ONE (10:22)
[2017-05-11] MEDS ORDERED: POTASSIUM CHLORIDE 20 MEQ TABLET PO ONE (13:10)
[2017-05-11] MEDS: SODIUM CHLORIDE 0.45% 1,000 ML IV SCH (13:30)
[2017-05-11] MEDS: INSULIN GLARGINE 100 UNIT/ML SUBCUT SCH (22:05)
[2017-05-12] MEDS: ALBUTEROL/IPRATROPIUM 3 ML NEB RESP TX SCH ×4 (00:20→19:44)
[2017-05-12] MEDS: PROPOFOL 1,000 MG/100 ML BOTTLE IV SCH ×4 (00:28→21:30)
[2017-05-12] MEDS: INSULIN REGULAR 100 UNIT/ML SUBCUT SCH ×4 (00:30→19:08)
[2017-05-12] MEDS: INSULIN LISPRO 100 UNIT/ML SUBCUT SCH ×5 (00:30→23:00)
[2017-05-12] MEDS: SODIUM CHLORIDE 0.45% 1,000 ML IV SCH ×2 (03:22→16:46)
[2017-05-12] MEDS: MIDAZOLAM 100 MG in SODIUM CHLORIDE 0.9% 80 ML IV SCH (03:23)
[2017-05-12 04:32] LABS: ABG Base Excess 4.3 MMOL/L (-2.5-2.5); ABG HCO3 28.3 MMOL/L (20-26); ABG Oxygen Saturation 98.6 % (95-100); ABG PH 7.468 (7.35-7.45); ABG TCO2 25.2 MMOL/L (23-27)
[2017-05-12 06:02] LABS: Calcium 8.9 MG/DL (8.5-10.1); Osmolality,Calculated 280.5 MOS/KG (273-304); Potassium 4.3 MMOL/L (3.5-5.1)
[2017-05-12] MEDS: GENVOYA PO SCH (11:04)
[2017-05-12] MEDS: SULFAMETHOX/TRIMETHOPRIM 200-40 MG/5 ML -20 ML UDCUP NG SCH (11:04)
[2017-05-12] MEDS: MONTELUKAST 10 MG TABLET PO SCH ×2 (11:05→22:02)
[2017-05-12] MEDS: MULTIVITAMIN LIQUID (CENTRUM) 60 ML BOTTLE PER TUBE SCH (11:05)
[2017-05-12] MEDS: guaiFENesin/DM ER 600-30 MG TABLET PO SCH ×2 (11:05→22:04)
[2017-05-12] MEDS: FOLIC ACID 1 MG TABLET PO SCH (11:06)
[2017-05-12] MEDS: DILTIAZEM 60 MG TABLET PO SCH ×4 (11:11→22:02)
[2017-05-12] MEDS: PANTOPRAZOLE 40 MG VIAL IV SCH (11:11)
[2017-05-12] MEDS: methylPREDNISolone SOD SUC 40 MG/1 ML VIAL IV SCH (11:23)
[2017-05-12] MEDS: ESCITALOPRAM 10 MG TABLET PO SCH (22:03)
[2017-05-12] MEDS: INSULIN GLARGINE 100 UNIT/ML SUBCUT SCH (22:04)
[2017-05-13] MEDS: ALBUTEROL/IPRATROPIUM 3 ML NEB RESP TX SCH ×4 (00:47→19:43)
[2017-05-13] MEDS: PROPOFOL 1,000 MG/100 ML BOTTLE IV SCH ×4 (01:30→23:52)
[2017-05-13] MEDS: INSULIN REGULAR 100 UNIT/ML SUBCUT SCH ×5 (03:56→20:03)
[2017-05-13] MEDS: MIDAZOLAM 100 MG in SODIUM CHLORIDE 0.9% 80 ML IV SCH (03:57)
[2017-05-13 05:43] LABS: Magnesium 1.9 MG/DL (1.8-2.4); Prealbumin 24.7 MG/DL (20-40)
[2017-05-13] MEDS: INSULIN LISPRO 100 UNIT/ML SUBCUT SCH ×3 (07:18→20:03)
[2017-05-13] MEDS: SODIUM CHLORIDE 0.45% 1,000 ML IV SCH (10:31)
[2017-05-13] MEDS: MULTIVITAMIN LIQUID (CENTRUM) 60 ML BOTTLE PER TUBE SCH (11:45)
[2017-05-13] MEDS: SULFAMETHOX/TRIMETHOPRIM 200-40 MG/5 ML -20 ML UDCUP NG SCH (11:45)
[2017-05-13] MEDS: GENVOYA PO SCH (11:46)
[2017-05-13] MEDS: DILTIAZEM 60 MG TABLET PO SCH ×4 (11:47→20:32)
[2017-05-13] MEDS: guaiFENesin/DM ER 600-30 MG TABLET PO SCH ×2 (11:47→20:32)
[2017-05-13] MEDS: FOLIC ACID 1 MG TABLET PO SCH (11:48)
[2017-05-13] MEDS: MONTELUKAST 10 MG TABLET PO SCH ×2 (11:48→20:32)
[2017-05-13] MEDS: methylPREDNISolone SOD SUC 40 MG/1 ML VIAL IV SCH (12:10)
[2017-05-13] MEDS: PANTOPRAZOLE 40 MG VIAL IV SCH (12:13)
[2017-05-13] MEDS: ESCITALOPRAM 10 MG TABLET PO SCH (20:32)
[2017-05-13] MEDS: INSULIN GLARGINE 100 UNIT/ML SUBCUT SCH (21:59)
[2017-05-14] MEDS: ALBUTEROL/IPRATROPIUM 3 ML NEB RESP TX SCH ×4 (00:50→20:46)
[2017-05-14] MEDS: INSULIN LISPRO 100 UNIT/ML SUBCUT SCH ×4 (01:07→18:17)
[2017-05-14] MEDS: INSULIN REGULAR 100 UNIT/ML SUBCUT SCH ×4 (01:08→18:17)
[2017-05-14] MEDS: SODIUM CHLORIDE 0.45% 1,000 ML IV SCH ×3 (01:58→16:24)
[2017-05-14] MEDS: PROPOFOL 1,000 MG/100 ML BOTTLE IV SCH ×3 (03:03→17:31)
[2017-05-14 03:46] LABS: ABG Base Excess 2.2 MMOL/L (-2.5-2.5); ABG HCO3 26.4 MMOL/L (20-26); ABG Oxygen Saturation 98.8 % (95-100); ABG PCO2 35.3 MM HG (35-48); ABG PH 7.469 (7.35-7.45); ABG TCO2 23.1 MMOL/L (23-27); Allen Test Positive; Pt O2 Delivery Device Ventilator
[2017-05-14 05:16] LABS: Calcium 8.8 MG/DL (8.5-10.1); Potassium 4.1 MMOL/L (3.5-5.1)
[2017-05-14] MEDS: GENVOYA PO SCH (08:58)
[2017-05-14] MEDS: FLUCONAZOLE INJ 200 MG in PREMIX 1 EACH IV SCH (08:58)
[2017-05-14] MEDS: DILTIAZEM 60 MG TABLET PO SCH ×4 (08:59→21:05)
[2017-05-14] MEDS: guaiFENesin/DM ER 600-30 MG TABLET PO SCH ×2 (09:02→21:05)
[2017-05-14] MEDS: FOLIC ACID 1 MG TABLET PO SCH (09:02)
[2017-05-14] MEDS: MONTELUKAST 10 MG TABLET PO SCH ×2 (09:02→21:06)
[2017-05-14] MEDS: PANTOPRAZOLE 40 MG VIAL IV SCH (09:02)
[2017-05-14] MEDS: methylPREDNISolone SOD SUC 40 MG/1 ML VIAL IV SCH (09:03)
[2017-05-14] MEDS ORDERED: CLORAZEPATE 3.75 MG TABLET PO PRN (10:27)
[2017-05-14] MEDS: CLORAZEPATE 3.75 MG TABLET PO SCH ×2 (11:28→18:20)
[2017-05-14] MEDS: MULTIVITAMIN LIQUID (CENTRUM) 60 ML BOTTLE PER TUBE SCH (11:28)
[2017-05-14] MEDS: HYDROmorphone 2 MG/1 ML VIAL IV PRN ×2 (11:38→17:26)
[2017-05-14] MEDS: INSULIN GLARGINE 100 UNIT/ML SUBCUT SCH (21:05)
[2017-05-14] MEDS: ESCITALOPRAM 10 MG TABLET PO SCH (21:06)
[2017-05-15] MEDS: INSULIN REGULAR 100 UNIT/ML SUBCUT SCH ×4 (00:29→18:03)
[2017-05-15] MEDS: INSULIN LISPRO 100 UNIT/ML SUBCUT SCH ×2 (00:29→06:10)
[2017-05-15] MEDS: PROPOFOL 1,000 MG/100 ML BOTTLE IV SCH ×5 (00:59→20:00)
[2017-05-15] MEDS: ALBUTEROL/IPRATROPIUM 3 ML NEB RESP TX SCH ×4 (01:21→20:30)
[2017-05-15] MEDS: CLORAZEPATE 3.75 MG TABLET PO SCH ×3 (03:13→18:04)
[2017-05-15 03:45] LABS: ABG Base Excess 1.8 MMOL/L (-2.5-2.5); ABG Oxygen Saturation 98.8 % (95-100); ABG PCO2 49.7 MM HG (35-48); ABG PH 7.358 (7.35-7.45); ABG TCO2 25.3 MMOL/L (23-27); Allen Test Positive; Pt O2 Delivery Device Ventilator
[2017-05-15 05:15] LABS: Basophils % 0.2 % (0.0-0.8); Eosinophils # 0.2 10*3/uL (0.0-0.87); Eosinophils % 1.7 % (0.00-10.9); Hematocrit 31.3 VOL% (35.7-47.0); Hemoglobin 9.7 GM/DL (12.0-16.0); Immature Granulocytes % 5.8 %; Immature Granulocytes Absolute 0.59 #; Lymphocytes # 1.1 10*3/uL (1.4-4.0); Lymphocytes % 11.2 % (21.3-54.2); Mean Corpuscular Hemoglobin 25 PG (27-34); Mean Corpuscular Volume 80.1 FL (87-102); Monocytes # 0.7 10*3/uL (0.11-0.8); Monocytes % 7.2 % (1.7-12.7); Neutrophils # 7.5 10*3/uL (1.4-7.4); Neutrophils % 73.9 % (38.7-73.9); Platelet Count 231 T/CUMM (130-400); Red Blood Count 3.91 MC/CUMM (3.8-5.5); Red Cell Distribution Width 18.4 % (9.3-17.3); White Blood Count 10.2 T/CUMM (4-12)
[2017-05-15 05:51] LABS: Giant Platelets Few; Hypochromasia 1+; Ovalocytes Slight; Platelet Estimate Adequate
[2017-05-15 05:52] LABS: Alanine Aminotransferase 25 U/L (13-56); Albumin 2.7 G/DL (3.4-5.0); Alkaline Phosphatase 79 U/L (45-117); Aspartate Amino Transferase 14 U/L (0-37); Bilirubin,Total < 0.39 MG/DL (0.2-1.0); Blood Urea Nitrogen 18 MG/DL (7-18); Calcium 8.9 MG/DL (8.5-10.1); Glucose 56 MG/DL (74-106); Osmolality,Calculated 267.2 MOS/KG (273-304); Potassium 3.8 MMOL/L (3.5-5.1); Sodium 134 MMOL/L (136-145); Total Protein 5.9 G/DL (6.4-8.3)
[2017-05-15] MEDS: SODIUM CHLORIDE 0.45% 1,000 ML IV SCH ×2 (05:55→19:55)
[2017-05-15] MEDS: PANTOPRAZOLE 40 MG VIAL IV SCH (08:36)
[2017-05-15] MEDS: FLUCONAZOLE INJ 200 MG in PREMIX 1 EACH IV SCH (08:37)
[2017-05-15] MEDS: MULTIVITAMIN LIQUID (CENTRUM) 60 ML BOTTLE PER TUBE SCH (08:38)
[2017-05-15] MEDS: GENVOYA PO SCH (08:38)
[2017-05-15] MEDS: DILTIAZEM 60 MG TABLET PO SCH ×4 (08:39→21:27)
[2017-05-15] MEDS: FOLIC ACID 1 MG TABLET PO SCH (08:39)
[2017-05-15] MEDS: guaiFENesin/DM ER 600-30 MG TABLET PO SCH ×2 (08:39→21:29)
[2017-05-15] MEDS: methylPREDNISolone SOD SUC 40 MG/1 ML VIAL IV SCH (08:39)
[2017-05-15] MEDS: MONTELUKAST 10 MG TABLET PO SCH ×2 (08:39→21:29)
[2017-05-15] MEDS: HYDROmorphone 2 MG/1 ML VIAL IV PRN ×3 (09:25→21:30)
[2017-05-15] MEDS: ESCITALOPRAM 10 MG TABLET PO SCH (21:29)
[2017-05-15] MEDS: INSULIN GLARGINE 100 UNIT/ML SUBCUT SCH (21:29)
[2017-05-16] MEDS: ALBUTEROL/IPRATROPIUM 3 ML NEB RESP TX SCH ×4 (00:08→19:48)
[2017-05-16] MEDS: INSULIN REGULAR 100 UNIT/ML SUBCUT SCH ×4 (00:42→18:29)
[2017-05-16] MEDS: CLORAZEPATE 3.75 MG TABLET PO SCH ×3 (02:24→18:27)
[2017-05-16] MEDS: PROPOFOL 1,000 MG/100 ML BOTTLE IV SCH ×3 (02:57→06:32)
[2017-05-16 03:45] LABS: Pt O2 Delivery Device Ventilator
[2017-05-16 03:49] LABS: ABG Base Excess 2.4 MMOL/L (-2.5-2.5); ABG HCO3 24.6 MMOL/L (20-26); ABG PCO2 31.3 MM HG (35-48); ABG PH 7.513 (7.35-7.45); ABG PO2 178.4 MM HG (80-95); ABG TCO2 25.5 MMOL/L (23-27)
[2017-05-16 03:50] LABS: ABG Oxygen Saturation 99.4 % (95-100)
[2017-05-16 05:12] LABS: Calcium 8.7 MG/DL (8.5-10.1); Potassium 3.6 MMOL/L (3.5-5.1)
[2017-05-16] MEDS: FLUCONAZOLE INJ 200 MG in PREMIX 1 EACH IV SCH (09:11)
[2017-05-16] MEDS: FOLIC ACID 1 MG TABLET PO SCH (09:18)
[2017-05-16] MEDS: GENVOYA PO SCH (09:18)
[2017-05-16] MEDS: guaiFENesin/DM ER 600-30 MG TABLET PO SCH ×2 (09:18→21:09)
[2017-05-16] MEDS: DILTIAZEM 60 MG TABLET PO SCH ×4 (09:19→21:09)
[2017-05-16] MEDS: MULTIVITAMIN LIQUID (CENTRUM) 60 ML BOTTLE PER TUBE SCH (09:20)
[2017-05-16] MEDS: MONTELUKAST 10 MG TABLET PO SCH ×2 (09:21→21:09)
[2017-05-16] MEDS: methylPREDNISolone SOD SUC 40 MG/1 ML VIAL IV SCH (09:23)
[2017-05-16] MEDS: PANTOPRAZOLE 40 MG VIAL IV SCH (09:28)
[2017-05-16] MEDS: SODIUM CHLORIDE 0.45% 1,000 ML IV SCH ×2 (09:31→21:21)
[2017-05-16] MEDS: INSULIN GLARGINE 100 UNIT/ML SUBCUT SCH (21:09)
[2017-05-16] MEDS: ESCITALOPRAM 10 MG TABLET PO SCH (21:09)
[2017-05-17] MEDS: ALBUTEROL/IPRATROPIUM 3 ML NEB RESP TX SCH ×4 (00:57→20:43)
[2017-05-17] MEDS: INSULIN REGULAR 100 UNIT/ML SUBCUT SCH ×5 (01:37→23:41)
[2017-05-17] MEDS: CLORAZEPATE 3.75 MG TABLET PO SCH (02:23)
[2017-05-17] MEDS: PROPOFOL 1,000 MG/100 ML BOTTLE IV SCH ×4 (02:30→23:32)
[2017-05-17] MEDS ORDERED: fentaNYL 100 MCG/2 ML VIAL IV ONE (03:17)
[2017-05-17 03:40] LABS: ABG HCO3 24.5 MMOL/L (20-26); ABG Oxygen Saturation 98.9 % (95-100); ABG PCO2 21.9 MM HG (35-48); ABG PH 7.667 (7.35-7.45); ABG PO2 176.2 MM HG (80-95); ABG TCO2 25.2 MMOL/L (23-27); Allen Test Positive; Pt O2 Delivery Device Ventilator
[2017-05-17 03:48] LABS: Basophils % 0.2 % (0.0-0.8); Eosinophils # 0.1 10*3/uL (0.0-0.87); Hemoglobin 10.6 GM/DL (12.0-16.0); Immature Granulocytes % 4.7 %; Immature Granulocytes Absolute 0.49 #; Lymphocytes # 1.1 10*3/uL (1.4-4.0); Lymphocytes % 10.2 % (21.3-54.2); Mean Corpuscular HGB Conc 34.2 GM/DL (32-36); Mean Corpuscular Hemoglobin 26 PG (27-34); Mean Corpuscular Volume 77.3 FL (87-102); Mean Platelet Volume 9.8 FL (9.6-12.0); Monocytes # 0.8 10*3/uL (0.11-0.8); Monocytes % 7.6 % (1.7-12.7); Neutrophils % 76.3 % (38.7-73.9); Platelet Count 221 T/CUMM (130-400); Red Blood Count 4.01 MC/CUMM (3.8-5.5); Red Cell Distribution Width 18.6 % (9.3-17.3); White Blood Count 10.5 T/CUMM (4-12)
[2017-05-17 04:14] LABS: Calcium 8.3 MG/DL (8.5-10.1); Osmolality,Calculated 266.5 MOS/KG (273-304); Potassium 4.3 MMOL/L (3.5-5.1)
[2017-05-17] MEDS ORDERED: fentaNYL 100 MCG/2 ML VIAL IV PRN (04:17)
[2017-05-17] MEDS: CLORAZEPATE 7.5 MG TABLET PO SCH ×3 (08:35→20:55)
[2017-05-17] MEDS: FLUCONAZOLE INJ 200 MG in PREMIX 1 EACH IV SCH (08:36)
[2017-05-17] MEDS ORDERED: VALPROIC ACID 250 MG/5 ML UDCUP PO SCH (09:00)
[2017-05-17] MEDS: MULTIVITAMIN LIQUID (CENTRUM) 60 ML BOTTLE PER TUBE SCH (11:50)
[2017-05-17] MEDS: DILTIAZEM 60 MG TABLET PO SCH ×4 (11:50→20:56)
[2017-05-17] MEDS: MONTELUKAST 10 MG TABLET PO SCH ×2 (11:51→20:56)
[2017-05-17] MEDS: GENVOYA PO SCH (11:51)
[2017-05-17] MEDS: guaiFENesin/DM ER 600-30 MG TABLET PO SCH ×2 (11:52→20:56)
[2017-05-17] MEDS: FOLIC ACID 1 MG TABLET PO SCH (11:52)
[2017-05-17] MEDS: PANTOPRAZOLE 40 MG VIAL IV SCH (11:56)
[2017-05-17] MEDS: methylPREDNISolone SOD SUC 40 MG/1 ML VIAL IV SCH (12:06)
[2017-05-17] MEDS: SODIUM CHLORIDE 0.45% 1,000 ML IV SCH (14:36)
[2017-05-17] MEDS: INSULIN GLARGINE 100 UNIT/ML SUBCUT SCH (20:55)
[2017-05-17] MEDS: ESCITALOPRAM 10 MG TABLET PO SCH (21:11)
[2017-05-18] MEDS: ALBUTEROL/IPRATROPIUM 3 ML NEB RESP TX SCH ×4 (00:41→20:50)
[2017-05-18] MEDS: PROPOFOL 1,000 MG/100 ML BOTTLE IV SCH ×2 (01:48→04:49)
[2017-05-18] MEDS ORDERED: clonazePAM 0.5 MG TABLET PO ONE (02:00)
[2017-05-18] MEDS: CLORAZEPATE 7.5 MG TABLET PO SCH ×4 (03:38→18:35)
[2017-05-18 03:42] LABS: ABG Base Excess -2.8 MMOL/L (-2.5-2.5); ABG HCO3 22.1 MMOL/L (20-26); ABG Oxygen Saturation 99.5 % (95-100); ABG PCO2 26.8 MM HG (35-48); ABG PH 7.472 (7.35-7.45); ABG TCO2 17.4 MMOL/L (23-27); Allen Test Positive; Pt O2 Delivery Device Ventilator
[2017-05-18] MEDS: SODIUM CHLORIDE 0.45% 1,000 ML IV SCH ×2 (03:57→17:59)
[2017-05-18 06:06] LABS: Calcium 8.7 MG/DL (8.5-10.1); Osmolality,Calculated 272.2 MOS/KG (273-304); Potassium 3.6 MMOL/L (3.5-5.1)
[2017-05-18] MEDS: INSULIN REGULAR 100 UNIT/ML SUBCUT SCH ×3 (06:06→17:53)
[2017-05-18] MEDS: FLUCONAZOLE INJ 200 MG in PREMIX 1 EACH IV SCH (08:50)
[2017-05-18] MEDS: guaiFENesin/DM ER 600-30 MG TABLET PO SCH ×2 (09:00→21:15)
[2017-05-18] MEDS: GENVOYA PO SCH (09:00)
[2017-05-18] MEDS: FOLIC ACID 1 MG TABLET PO SCH (09:00)
[2017-05-18] MEDS: MONTELUKAST 10 MG TABLET PO SCH ×2 (09:00→21:15)
[2017-05-18] MEDS: DILTIAZEM 60 MG TABLET PO SCH ×4 (09:01→21:15)
[2017-05-18] MEDS: methylPREDNISolone SOD SUC 40 MG/1 ML VIAL IV SCH (09:11)
[2017-05-18] MEDS: PANTOPRAZOLE 40 MG VIAL IV SCH (09:17)
[2017-05-18] MEDS: MULTIVITAMIN LIQUID (CENTRUM) 60 ML BOTTLE PER TUBE SCH (12:07)
[2017-05-18] MEDS: ESCITALOPRAM 10 MG TABLET PO SCH (21:15)
[2017-05-18] MEDS: INSULIN GLARGINE 100 UNIT/ML SUBCUT SCH (21:19)
[2017-05-18] MEDS: RANITIDINE 150 MG/10 ML 30 ML BOTTLE PO SCH (21:20)
[2017-05-19] MEDS: PROPOFOL 1,000 MG/100 ML BOTTLE IV SCH ×12 (00:02→23:55)
[2017-05-19] MEDS: CLORAZEPATE 7.5 MG TABLET PO SCH ×5 (00:07→21:32)
[2017-05-19] MEDS: INSULIN REGULAR 100 UNIT/ML SUBCUT SCH ×5 (00:12→23:59)
[2017-05-19] MEDS: ONDANSETRON 4 MG/2 ML VIAL IV PRN (00:33)
[2017-05-19] MEDS: ALBUTEROL/IPRATROPIUM 3 ML NEB RESP TX SCH ×4 (02:26→19:36)
[2017-05-19 04:33] LABS: ABG HCO3 21.5 MMOL/L (20-26); ABG Oxygen Saturation 74.2 % (95-100); ABG PCO2 38.5 MM HG (35-48); ABG PH 7.365 (7.35-7.45); ABG PO2 43.4 MM HG (80-95)
[2017-05-19 04:44] LABS: Basophils % 0.2 % (0.0-0.8); Eosinophils # 0.1 10*3/uL (0.0-0.87); Eosinophils % 0.5 % (0.00-10.9); Hematocrit 32.7 VOL% (35.7-47.0); Hemoglobin 10.9 GM/DL (12.0-16.0); Immature Granulocytes % 3.3 %; Immature Granulocytes Absolute 0.42 #; Lymphocytes # 1.3 10*3/uL (1.4-4.0); Lymphocytes % 9.7 % (21.3-54.2); Mean Corpuscular HGB Conc 33.3 GM/DL (32-36); Mean Corpuscular Hemoglobin 27 PG (27-34); Mean Corpuscular Volume 81.1 FL (87-102); Monocytes # 0.9 10*3/uL (0.11-0.8); Neutrophils # 10.2 10*3/uL (1.4-7.4); Neutrophils % 79.3 % (38.7-73.9); Platelet Count 209 T/CUMM (130-400); Red Blood Count 4.03 MC/CUMM (3.8-5.5); Red Cell Distribution Width 19.9 % (9.3-17.3); White Blood Count 12.9 T/CUMM (4-12)
[2017-05-19 05:02] LABS: Albumin 2.9 G/DL (3.4-5.0); Bilirubin,Total 0.8 MG/DL (0.2-1.0); Calcium 8.2 MG/DL (8.5-10.1); Magnesium 2.1 MG/DL (1.8-2.4); Osmolality,Calculated 264.7 MOS/KG (273-304); Potassium 3.4 MMOL/L (3.5-5.1); Total Protein 6.2 G/DL (6.4-8.3)
[2017-05-19] MEDS: SODIUM CHLORIDE 0.45% 1,000 ML IV SCH (09:25)
[2017-05-19] MEDS: methylPREDNISolone SOD SUC 40 MG/1 ML VIAL IV SCH (09:30)
[2017-05-19] MEDS: guaiFENesin/DM ER 600-30 MG TABLET PO SCH ×2 (11:36→21:33)
[2017-05-19] MEDS: FOLIC ACID 1 MG TABLET PO SCH (11:37)
[2017-05-19] MEDS: MONTELUKAST 10 MG TABLET PO SCH ×2 (11:38→21:32)
[2017-05-19] MEDS: DILTIAZEM 60 MG TABLET PO SCH ×4 (11:38→21:32)
[2017-05-19] MEDS: RANITIDINE 150 MG/10 ML 30 ML BOTTLE PO SCH ×2 (11:42→21:32)
[2017-05-19] MEDS: GENVOYA PO SCH (11:43)
[2017-05-19] MEDS: MULTIVITAMIN LIQUID (CENTRUM) 60 ML BOTTLE PER TUBE SCH (11:43)
[2017-05-19] MEDS: FLUCONAZOLE INJ 200 MG in PREMIX 1 EACH IV SCH (11:51)
[2017-05-19] MEDS ORDERED: INSULIN GLARGINE 100 UNIT/ML SUBCUT SCH (12:00)
[2017-05-19] MEDS ORDERED: FUROSEMIDE 20 MG/2 ML VIAL ONE (15:14)
[2017-05-19] MEDS: POTASSIUM CHLORIDE 20 MEQ/15 ML UDCUP PER TUBE PRN ×3 (15:16→19:01)
[2017-05-19] MEDS: FUROSEMIDE 40 MG/4 ML VIAL IV SCH ×2 (15:23→16:02)
[2017-05-19] MEDS: ESCITALOPRAM 10 MG TABLET PO SCH (21:33)
[2017-05-20] MEDS: ALBUTEROL/IPRATROPIUM 3 ML NEB RESP TX SCH ×4 (00:22→20:04)
[2017-05-20] MEDS: PROPOFOL 1,000 MG/100 ML BOTTLE IV SCH ×9 (02:08→22:55)
[2017-05-20] MEDS: CLORAZEPATE 7.5 MG TABLET PO SCH ×2 (02:33→09:00)
[2017-05-20 02:37] LABS: Pt O2 Delivery Device Ventilator
[2017-05-20 02:41] LABS: ABG HCO3 20.3 MMOL/L (20-26); ABG Oxygen Saturation 98.8 % (95-100); ABG PCO2 68.4 MM HG (35-48); ABG TCO2 23.3 MMOL/L (23-27)
[2017-05-20 02:45] LABS: ABG PH 7.172 (7.35-7.45)
[2017-05-20 04:18] LABS: ABG Base Excess -4.2 MMOL/L (-2.5-2.5); ABG HCO3 20.9 MMOL/L (20-26); ABG Oxygen Saturation 93.9 % (95-100); ABG PO2 79.6 MM HG (80-95); ABG TCO2 24.2 MMOL/L (23-27)
[2017-05-20 04:19] LABS: ABG PCO2 70.9 MM HG (35-48); ABG PH 7.173 (7.35-7.45)
[2017-05-20 04:27] LABS: Basophils % 0.1 % (0.0-0.8); Hemoglobin 11.1 GM/DL (12.0-16.0); Immature Granulocytes % 2.3 %; Lymphocytes # 0.8 10*3/uL (1.4-4.0); Mean Corpuscular HGB Conc 30.8 GM/DL (32-36); Mean Corpuscular Hemoglobin 26 PG (27-34); Mean Corpuscular Volume 83.5 FL (87-102); Mean Platelet Volume 9.5 FL (9.6-12.0); Monocytes # 0.6 10*3/uL (0.11-0.8); Monocytes % 4.7 % (1.7-12.7); Neutrophils # 11.2 10*3/uL (1.4-7.4); Neutrophils % 86.9 % (38.7-73.9); Platelet Count 224 T/CUMM (130-400); Red Blood Count 4.31 MC/CUMM (3.8-5.5); Red Cell Distribution Width 19.5 % (9.3-17.3); White Blood Count 12.9 T/CUMM (4-12)
[2017-05-20 04:49] LABS: Calcium 9.4 MG/DL (8.5-10.1); Osmolality,Calculated 286.8 MOS/KG (273-304); Potassium 4.5 MMOL/L (3.5-5.1)
[2017-05-20 05:01] LABS: Magnesium 2.4 MG/DL (1.8-2.4); Prealbumin 38.1 MG/DL (20-40)
[2017-05-20 05:54] LABS: ABG Base Excess -2.6 MMOL/L (-2.5-2.5); ABG HCO3 22.3 MMOL/L (20-26); ABG Oxygen Saturation 99.8 % (95-100); ABG PCO2 47.1 MM HG (35-48); ABG PH 7.313 (7.35-7.45); ABG TCO2 21.7 MMOL/L (23-27)
[2017-05-20] MEDS: INSULIN REGULAR 100 UNIT/ML SUBCUT SCH ×5 (06:28→18:16)
[2017-05-20] MEDS: FUROSEMIDE 40 MG/4 ML VIAL IV SCH ×2 (08:30→17:30)
[2017-05-20] MEDS ORDERED: MAGNESIUM CITRATE 300 ML BOTTLE PO ONE (08:35)
[2017-05-20] MEDS: methylPREDNISolone SOD SUC 40 MG/1 ML VIAL IV SCH (09:00)
[2017-05-20] MEDS: DILTIAZEM 60 MG TABLET PO SCH ×4 (09:00→21:01)
[2017-05-20] MEDS: MONTELUKAST 10 MG TABLET PO SCH ×2 (10:07→21:01)
[2017-05-20] MEDS: FOLIC ACID 1 MG TABLET PO SCH (10:08)
[2017-05-20] MEDS: guaiFENesin/DM ER 600-30 MG TABLET PO SCH ×2 (10:08→21:02)
[2017-05-20] MEDS: GENVOYA PO SCH (10:10)
[2017-05-20] MEDS: MULTIVITAMIN LIQUID (CENTRUM) 60 ML BOTTLE PER TUBE SCH (10:10)
[2017-05-20] MEDS: RANITIDINE 150 MG/10 ML 30 ML BOTTLE PO SCH ×2 (10:11→21:01)
[2017-05-20] MEDS: ESCITALOPRAM 10 MG TABLET PO SCH (21:02)
[2017-05-20] MEDS: INSULIN GLARGINE 100 UNIT/ML SUBCUT SCH (21:02)
[2017-05-21] MEDS: INSULIN REGULAR 100 UNIT/ML SUBCUT SCH ×8 (00:59→19:23)
[2017-05-21] MEDS: PROPOFOL 1,000 MG/100 ML BOTTLE IV SCH ×3 (01:05→05:25)
[2017-05-21] MEDS: ALBUTEROL/IPRATROPIUM 3 ML NEB RESP TX SCH ×4 (02:25→20:36)
[2017-05-21 03:12] LABS: ABG Base Excess 3.4 MMOL/L (-2.5-2.5); ABG HCO3 27.6 MMOL/L (20-26); ABG PCO2 40.1 MM HG (35-48); ABG PH 7.455 (7.35-7.45); ABG TCO2 28.8 MMOL/L (23-27); Allen Test Positive; Pt O2 Delivery Device Ventilator
[2017-05-21 03:13] LABS: ABG Oxygen Saturation 99.2 % (95-100)
[2017-05-21 06:03] LABS: Basophils % 0.1 % (0.0-0.8); Eosinophils % 0.2 % (0.00-10.9); Hemoglobin 11.3 GM/DL (12.0-16.0); Immature Granulocytes % 1.9 %; Immature Granulocytes Absolute 0.21 #; Lymphocytes # 0.9 10*3/uL (1.4-4.0); Lymphocytes % 7.9 % (21.3-54.2); Mean Corpuscular HGB Conc 32.3 GM/DL (32-36); Mean Corpuscular Hemoglobin 26 PG (27-34); Monocytes # 0.9 10*3/uL (0.11-0.8); Monocytes % 8.3 % (1.7-12.7); Neutrophils # 9.1 10*3/uL (1.4-7.4); Neutrophils % 81.6 % (38.7-73.9); Platelet Count 233 T/CUMM (130-400); Red Blood Count 4.32 MC/CUMM (3.8-5.5); Red Cell Distribution Width 19.5 % (9.3-17.3); White Blood Count 11.1 T/CUMM (4-12)
[2017-05-21 06:23] LABS: Calcium 9.4 MG/DL (8.5-10.1); Osmolality,Calculated 290.8 MOS/KG (273-304); Potassium 3.6 MMOL/L (3.5-5.1)
[2017-05-21] MEDS: FUROSEMIDE 40 MG/4 ML VIAL IV SCH (10:20)
[2017-05-21] MEDS: methylPREDNISolone SOD SUC 40 MG/1 ML VIAL IV SCH (10:31)
[2017-05-21] MEDS ORDERED: DORNASE ALFA 2.5 MG/2.5 ML VIAL RESP TX SCH (13:00)
[2017-05-21] MEDS: DILTIAZEM 60 MG TABLET PO SCH ×3 (13:25→21:21)
[2017-05-21] MEDS: MONTELUKAST 10 MG TABLET PO SCH ×2 (17:40→21:20)
[2017-05-21] MEDS: RANITIDINE 150 MG/10 ML 30 ML BOTTLE PO SCH ×2 (17:40→21:35)
[2017-05-21] MEDS: POTASSIUM CHLORIDE 20 MEQ/15 ML UDCUP PER TUBE PRN (18:27)
[2017-05-21] MEDS: MULTIVITAMIN LIQUID (CENTRUM) 60 ML BOTTLE PER TUBE SCH (18:28)
[2017-05-21] MEDS: GENVOYA PO SCH (18:28)
[2017-05-21] MEDS: FOLIC ACID 1 MG TABLET PO SCH (18:29)
[2017-05-21] MEDS: DORNASE ALFA 2.5 MG/2.5 ML VIAL RESP TX SCH (20:36)
[2017-05-21] MEDS: INSULIN GLARGINE 100 UNIT/ML SUBCUT SCH (21:22)
[2017-05-21] MEDS: ESCITALOPRAM 10 MG TABLET PO SCH (21:37)
[2017-05-22] MEDS: ALBUTEROL/IPRATROPIUM 3 ML NEB RESP TX SCH ×4 (00:30→19:49)
[2017-05-22] MEDS: INSULIN REGULAR 100 UNIT/ML SUBCUT SCH ×6 (03:04→19:08)
[2017-05-22] MEDS: HYDROmorphone 2 MG/1 ML VIAL IV PRN (03:06)
[2017-05-22 04:03] LABS: Allen Test Positive; Pt O2 Delivery Device Ventilator
[2017-05-22 04:08] LABS: ABG Base Excess -1.9 MMOL/L (-2.5-2.5); ABG HCO3 22.7 MMOL/L (20-26); ABG Oxygen Saturation 92.5 % (95-100); ABG PO2 88.4 MM HG (80-95)
[2017-05-22 04:14] LABS: ABG PH 7.055 (7.35-7.45)
[2017-05-22 04:39] LABS: Basophils % 0.2 % (0.0-0.8); Eosinophils % 0.1 % (0.00-10.9); Hematocrit 39.3 VOL% (35.7-47.0); Hemoglobin 12.1 GM/DL (12.0-16.0); Immature Granulocytes % 2.1 %; Immature Granulocytes Absolute 0.36 #; Lymphocytes # 0.7 10*3/uL (1.4-4.0); Lymphocytes % 4.2 % (21.3-54.2); Mean Corpuscular HGB Conc 30.8 GM/DL (32-36); Mean Corpuscular Hemoglobin 26 PG (27-34); Mean Corpuscular Volume 84.3 FL (87-102); Mean Platelet Volume 9.7 FL (9.6-12.0); Monocytes # 1.4 10*3/uL (0.11-0.8); Monocytes % 8.3 % (1.7-12.7); NRBC # 0.07 10*3/uL; Neutrophils # 14.4 10*3/uL (1.4-7.4); Neutrophils % 85.1 % (38.7-73.9); Platelet Count 263 T/CUMM (130-400); Red Blood Count 4.66 MC/CUMM (3.8-5.5); Red Cell Distribution Width 21.2 % (9.3-17.3); White Blood Count 16.9 T/CUMM (4-12)
[2017-05-22 04:56] LABS: Calcium 10.1 MG/DL (8.5-10.1); Osmolality,Calculated 300.3 MOS/KG (273-304); Potassium 4.4 MMOL/L (3.5-5.1)
[2017-05-22 05:52] LABS: Hypochromasia 1+; Lymphocytes 5 % (20-55); Nucleated Red Blood Cells 1 (0-5); Segmented Neutrophils 89 % (50-85); Total Cells Counted 100
[2017-05-22 05:53] LABS: Microcytosis 1+; Target Cells Slight
[2017-05-22 05:54] LABS: Platelet Estimate Normal
[2017-05-22 06:03] LABS: ABG Base Excess 0.4 MMOL/L (-2.5-2.5); ABG HCO3 31.9 MMOL/L (20-26); ABG Oxygen Saturation 94.2 % (95-100); ABG PO2 86.3 MM HG (80-95); ABG TCO2 34.7 MMOL/L (23-27)
[2017-05-22 06:08] LABS: ABG PCO2 93.2 MM HG (35-48)
[2017-05-22 06:09] LABS: ABG PH 7.152 (7.35-7.45)
[2017-05-22] MEDS ORDERED: EPINEPHrine 1 MG/ML VIAL ONE (07:38)
[2017-05-22] MEDS: DORNASE ALFA 2.5 MG/2.5 ML VIAL RESP TX SCH ×2 (07:53→19:49)
[2017-05-22 08:45] LABS: ABG Base Excess -2.1 MMOL/L (-2.5-2.5); ABG HCO3 22.7 MMOL/L (20-26); ABG Oxygen Saturation 99.5 % (95-100)
[2017-05-22 08:55] LABS: ABG PH 7.013 (7.35-7.45)
[2017-05-22] MEDS ORDERED: AMIODARONE 150 MG/3 ML VIAL IV ONE ×2 (11:45→12:00)
[2017-05-22] MEDS ORDERED: AMIODARONE INJ 450 MG in DEXTROSE 5% 241 ML IV SCH (12:00)
[2017-05-22 12:02] LABS: ABG HCO3 21.1 MMOL/L (20-26); ABG Oxygen Saturation 93.6 % (95-100); ABG PO2 79.7 MM HG (80-95); ABG TCO2 25.4 MMOL/L (23-27)
[2017-05-22 12:04] LABS: ABG PCO2 77.8 MM HG (35-48); ABG PH 7.144 (7.35-7.45)
[2017-05-22] MEDS ORDERED: AMIODARONE 450 MG/9 ML VIAL IV ONE (12:07)
[2017-05-22 12:14] LABS: Basophils % 0.1 % (0.0-0.8); Eosinophils % 0.1 % (0.00-10.9); Hematocrit 28.4 VOL% (35.7-47.0); Hemoglobin 8.2 GM/DL (12.0-16.0); Immature Granulocytes % 3.3 %; Immature Granulocytes Absolute 0.45 #; Lymphocytes # 1.4 10*3/uL (1.4-4.0); Lymphocytes % 10.1 % (21.3-54.2); Mean Corpuscular HGB Conc 28.9 GM/DL (32-36); Mean Corpuscular Hemoglobin 26 PG (27-34); Mean Platelet Volume 10.1 FL (9.6-12.0); Monocytes # 1.1 10*3/uL (0.11-0.8); Monocytes % 8.3 % (1.7-12.7); NRBC # 0.05 10*3/uL; Neutrophils # 10.6 10*3/uL (1.4-7.4); Neutrophils % 78.1 % (38.7-73.9); Platelet Count 190 T/CUMM (130-400); Red Blood Count 3.19 MC/CUMM (3.8-5.5); Red Cell Distribution Width 20.4 % (9.3-17.3); White Blood Count 13.6 T/CUMM (4-12)
[2017-05-22 12:30] LABS: Alanine Aminotransferase 46 U/L (13-56); Albumin 1.9 G/DL (3.4-5.0); Alkaline Phosphatase 71 U/L (45-117); Aspartate Amino Transferase 18 U/L (0-37); Bilirubin,Total < 0.39 MG/DL (0.2-1.0); Blood Urea Nitrogen 49 MG/DL (7-18); Calcium 6.7 MG/DL (8.5-10.1); Glucose 308 MG/DL (74-106); Magnesium 2.8 MG/DL (1.8-2.4); Sodium 150 MMOL/L (136-145); Total Protein 4.3 G/DL (6.4-8.3); Troponin I Only 0.017 NG/ML (0.00-0.045)
[2017-05-22 13:06] LABS: Hypochromasia 2+; Target Cells Slight
[2017-05-22] MEDS ORDERED: SODIUM CHLORIDE 0.9% 1,000 ML IV PRN (18:09)
[2017-05-22] MEDS: DILTIAZEM 60 MG TABLET PO SCH ×3 (18:37→21:58)
[2017-05-22] MEDS: MONTELUKAST 10 MG TABLET PO SCH ×2 (18:38→21:58)
[2017-05-22] MEDS: MULTIVITAMIN LIQUID (CENTRUM) 60 ML BOTTLE PER TUBE SCH (18:38)
[2017-05-22] MEDS: FOLIC ACID 1 MG TABLET PO SCH (18:38)
[2017-05-22] MEDS: GENVOYA PO SCH (18:38)
[2017-05-22] MEDS: RANITIDINE 150 MG/10 ML 30 ML BOTTLE PO SCH ×2 (18:39→21:57)
[2017-05-22] MEDS: AMIODARONE INJ 450 MG in DEXTROSE 5% 241 ML IV SCH (19:00)
[2017-05-22] MEDS: POTASSIUM CHLORIDE 20 MEQ/15 ML UDCUP PER TUBE PRN ×2 (19:10→22:03)
[2017-05-22] MEDS: methylPREDNISolone SOD SUC 40 MG/1 ML VIAL IV SCH (19:19)
[2017-05-22] MEDS ORDERED: SODIUM CHLORIDE 23.4% CONC INJ 38.5 MEQ, SODIUM BICARB INJ 100 MEQ in STERILE WATER INJ... IV SCH (19:30)
[2017-05-22 20:10] LABS: ABG Base Excess 12.9 MMOL/L (-2.5-2.5); ABG HCO3 36.8 MMOL/L (20-26); ABG PCO2 31.7 MM HG (35-48); ABG TCO2 30.7 MMOL/L (23-27)
[2017-05-22 20:19] LABS: ABG PH 7.645 (7.35-7.45)
[2017-05-22] MEDS: PIPERACILLIN/TAZOBACTAM 3,375 MG in SODIUM CHLORIDE 0.9% 100 ML IV SCH (21:58)
[2017-05-22] MEDS: INSULIN GLARGINE 100 UNIT/ML SUBCUT SCH (22:01)
[2017-05-22] MEDS: ESCITALOPRAM 10 MG TABLET PO SCH (22:02)
[2017-05-22] MEDS: POTASSIUM CHLORIDE INJ 40 MEQ, SODIUM CHLORIDE 23.4% CONC INJ 38.5 MEQ in STERILE WATER... IV SCH (22:30)
[2017-05-23] MEDS: ALBUTEROL 2.5 MG/3 ML NEB RESP TX PRN (00:50)
[2017-05-23] MEDS: ALBUTEROL/IPRATROPIUM 3 ML NEB RESP TX SCH ×4 (01:00→20:48)
[2017-05-23] MEDS: INSULIN REGULAR 100 UNIT/ML SUBCUT SCH ×10 (01:13→18:55)
[2017-05-23] MEDS ORDERED: LORazepam 2 MG/1 ML VIAL ONE (01:29)
[2017-05-23] MEDS ORDERED: LORazepam 2 MG/1 ML VIAL IV STA (01:45)
[2017-05-23 03:29] LABS: ABG Base Excess 11.9 MMOL/L (-2.5-2.5); ABG HCO3 32.7 MMOL/L (20-26); ABG PCO2 30.1 MM HG (35-48); ABG PH 7.654 (7.35-7.45); ABG PO2 201.3 MM HG (80-95); ABG TCO2 33.6 MMOL/L (23-27); Allen Test Positive; Pt O2 Delivery Device Ventilator
[2017-05-23 05:02] LABS: Basophils % 0.1 % (0.0-0.8); Hematocrit 37.6 VOL% (35.7-47.0); Immature Granulocytes % 1.4 %; Immature Granulocytes Absolute 0.18 #; Lymphocytes # 0.9 10*3/uL (1.4-4.0); Lymphocytes % 6.9 % (21.3-54.2); Mean Corpuscular HGB Conc 31.1 GM/DL (32-36); Mean Corpuscular Hemoglobin 26 PG (27-34); Mean Corpuscular Volume 82.8 FL (87-102); Mean Platelet Volume 9.6 FL (9.6-12.0); Monocytes # 0.7 10*3/uL (0.11-0.8); Monocytes % 5.6 % (1.7-12.7); NRBC # 0.04 10*3/uL; Platelet Count 186 T/CUMM (130-400); Red Blood Count 4.54 MC/CUMM (3.8-5.5); Red Cell Distribution Width 19.4 % (9.3-17.3); White Blood Count 12.8 T/CUMM (4-12)
[2017-05-23 05:10] LABS: Hemoglobin 11.7 GM/DL (12.0-16.0)
[2017-05-23 05:12] LABS: PT Patient Result 10.7 SECS
[2017-05-23 05:24] LABS: Calcium 8.7 MG/DL (8.5-10.1); Potassium 2.9 MMOL/L (3.5-5.1)
[2017-05-23] MEDS: PIPERACILLIN/TAZOBACTAM 3,375 MG in SODIUM CHLORIDE 0.9% 100 ML IV SCH ×3 (06:00→21:22)
[2017-05-23] MEDS: DORNASE ALFA 2.5 MG/2.5 ML VIAL RESP TX SCH ×2 (08:06→20:48)
[2017-05-23] MEDS: PROPOFOL 1,000 MG/100 ML BOTTLE IV SCH (08:57)
[2017-05-23] MEDS: POTASSIUM CHLORIDE INJ 40 MEQ, SODIUM CHLORIDE 23.4% CONC INJ 38.5 MEQ in STERILE WATER... IV SCH (09:13)
[2017-05-23] MEDS: FUROSEMIDE 40 MG/4 ML VIAL IV SCH (09:15)
[2017-05-23] MEDS: DILTIAZEM 60 MG TABLET PO SCH ×3 (09:15→13:27)
[2017-05-23] MEDS: guaiFENesin/DM ER 600-30 MG TABLET PO SCH (09:15)
[2017-05-23] MEDS: POTASSIUM CHLORIDE 20 MEQ/15 ML UDCUP PER TUBE PRN ×2 (10:00→12:00)
[2017-05-23] MEDS: MULTIVITAMIN LIQUID (CENTRUM) 60 ML BOTTLE PER TUBE SCH (11:15)
[2017-05-23] MEDS: GENVOYA PO SCH (11:15)
[2017-05-23] MEDS ORDERED: MIDAZOLAM 2 MG/2 ML VIAL ONE (11:57)
[2017-05-23] MEDS ORDERED: SODIUM BICARBONATE 50 MEQ/50 ML SYRINGE IV ONE (12:02)
[2017-05-23] MEDS ORDERED: DOPamine 800 MG/250 ML PREMIX IV ONE (12:02)
[2017-05-23 12:15] LABS: ABG Base Excess 3.8 MMOL/L (-2.5-2.5); ABG HCO3 26.3 MMOL/L (20-26); ABG Oxygen Saturation 29.4 % (95-100); ABG TCO2 34.9 MMOL/L (23-27)
[2017-05-23 12:17] LABS: ABG PH 7.166 (7.35-7.45); ABG PO2 27.1 MM HG (80-95)
[2017-05-23] MEDS ORDERED: SODIUM BICARB IV SCH (12:30)
[2017-05-23] MEDS ORDERED: [UNRECOGNIZED DRUG - OTHER] IV SCH (12:30)
[2017-05-23] MEDS ORDERED: POTASSIUM CHLORIDE IV SCH (12:30)
[2017-05-23] MEDS ORDERED: NOREPINEPHRINE 4 MG/4 ML VIAL IV ONE (12:30)
[2017-05-23 12:56] LABS: ABG Base Excess 7.3 MMOL/L (-2.5-2.5); ABG Oxygen Saturation 92.3 % (95-100); ABG PH 7.254 (7.35-7.45); ABG PO2 78.5 MM HG (80-95); ABG TCO2 34.7 MMOL/L (23-27); Allen Test Positive; Pt O2 Delivery Device Ventilator
[2017-05-23 12:58] LABS: ABG PCO2 88.2 MM HG (35-48)
[2017-05-23] MEDS: FOLIC ACID 1 MG TABLET PO SCH (13:27)
[2017-05-23] MEDS: MONTELUKAST 10 MG TABLET PO SCH ×2 (13:27→21:24)
[2017-05-23] MEDS: RANITIDINE 150 MG/10 ML 30 ML BOTTLE PO SCH ×2 (13:27→21:25)
[2017-05-23] MEDS: methylPREDNISolone SOD SUC 40 MG/1 ML VIAL IV SCH (13:27)
[2017-05-23] MEDS: AMIODARONE INJ 450 MG in DEXTROSE 5% 241 ML IV SCH (13:28)
[2017-05-23 16:00] LABS: Basophils % 0.1 % (0.0-0.8); Hematocrit 38.3 VOL% (35.7-47.0); Hemoglobin 11.9 GM/DL (12.0-16.0); Immature Granulocytes % 1.7 %; Immature Granulocytes Absolute 0.27 #; Lymphocytes # 0.6 10*3/uL (1.4-4.0); Lymphocytes % 3.5 % (21.3-54.2); Mean Corpuscular HGB Conc 31.1 GM/DL (32-36); Mean Corpuscular Hemoglobin 26 PG (27-34); Mean Corpuscular Volume 84.5 FL (87-102); Mean Platelet Volume 9.7 FL (9.6-12.0); Monocytes # 0.6 10*3/uL (0.11-0.8); Monocytes % 3.9 % (1.7-12.7); NRBC # 0.02 10*3/uL; Neutrophils # 14.4 10*3/uL (1.4-7.4); Neutrophils % 90.8 % (38.7-73.9); Platelet Count 183 T/CUMM (130-400); Red Blood Count 4.53 MC/CUMM (3.8-5.5); Red Cell Distribution Width 20.4 % (9.3-17.3); White Blood Count 15.8 T/CUMM (4-12)
[2017-05-23 16:21] LABS: Albumin 2.8 G/DL (3.4-5.0); Bilirubin,Total 0.6 MG/DL (0.2-1.0); Calcium 8.7 MG/DL (8.5-10.1); Osmolality,Calculated 325.9 MOS/KG (273-304); Total Protein 6.5 G/DL (6.4-8.3)
[2017-05-23 16:26] LABS: Potassium 6.3 MMOL/L (3.5-5.1)
[2017-05-23] MEDS: MEROPENEM 1,000 MG in SYRINGE 1 EACH IV SCH ×2 (16:48→18:56)
[2017-05-23 18:22] LABS: ABG Base Excess 11.3 MMOL/L (-2.5-2.5); ABG HCO3 35.1 MMOL/L (20-26); ABG PCO2 48.4 MM HG (35-48); ABG PH 7.487 (7.35-7.45); ABG TCO2 31.7 MMOL/L (23-27); Allen Test Positive; Pt O2 Delivery Device Ventilator
[2017-05-23 18:30] LABS: Hypochromasia 2+; Lymphocytes 3 % (20-55); Platelet Estimate Normal; Poikilocytosis 1+; Segmented Neutrophils 96 % (50-85); Target Cells Few; Total Cells Counted 100
[2017-05-23 18:31] LABS: Tear Drop Cells Few
[2017-05-23 18:32] LABS: Stomatocytes Few
[2017-05-23] MEDS: SODIUM BICARB INJ 50 MEQ in DEXTROSE 5% NACL 0.22% 1,000 ML IV SCH (18:48)
[2017-05-23] MEDS: ESCITALOPRAM 10 MG TABLET PO SCH (21:20)
[2017-05-23] MEDS: ENOXAPARIN 40 MG/0.4 ML SYRINGE SUBCUT SCH (21:20)
[2017-05-23] MEDS: INSULIN GLARGINE 100 UNIT/ML SUBCUT SCH (21:20)
[2017-05-24] MEDS: POTASSIUM CHLORIDE 20 MEQ/15 ML UDCUP PER TUBE PRN ×2 (00:31→06:00)
[2017-05-24] MEDS: INSULIN REGULAR 100 UNIT/ML SUBCUT SCH ×10 (00:31→23:41)
[2017-05-24] MEDS: ALBUTEROL/IPRATROPIUM 3 ML NEB RESP TX SCH ×4 (00:55→19:30)
[2017-05-24] MEDS: SODIUM BICARB INJ 50 MEQ in DEXTROSE 5% NACL 0.22% 1,000 ML IV SCH ×3 (03:15→23:44)
[2017-05-24] MEDS: MEROPENEM 1,000 MG in SYRINGE 1 EACH IV SCH ×3 (03:15→18:19)
[2017-05-24 04:08] LABS: ABG PCO2 45.8 MM HG (35-48); ABG PH 7.492 (7.35-7.45); Allen Test Positive; Pt O2 Delivery Device Ventilator
[2017-05-24 04:09] LABS: ABG Base Excess 10.3 MMOL/L (-2.5-2.5); ABG HCO3 34.1 MMOL/L (20-26); ABG TCO2 30.7 MMOL/L (23-27)
[2017-05-24 04:30] LABS: Basophils % 0.2 % (0.0-0.8); Hematocrit 36.2 VOL% (35.7-47.0); Hemoglobin 11.7 GM/DL (12.0-16.0); Immature Granulocytes % 1.3 %; Immature Granulocytes Absolute 0.17 #; Lymphocytes # 0.8 10*3/uL (1.4-4.0); Lymphocytes % 5.9 % (21.3-54.2); Mean Corpuscular HGB Conc 32.3 GM/DL (32-36); Mean Corpuscular Hemoglobin 27 PG (27-34); Mean Corpuscular Volume 82.3 FL (87-102); Mean Platelet Volume 10.1 FL (9.6-12.0); Monocytes # 0.9 10*3/uL (0.11-0.8); Monocytes % 7.2 % (1.7-12.7); NRBC # 0.02 10*3/uL; Neutrophils # 11.1 10*3/uL (1.4-7.4); Neutrophils % 85.4 % (38.7-73.9); Platelet Count 190 T/CUMM (130-400); Red Cell Distribution Width 20.8 % (9.3-17.3)
[2017-05-24 04:31] LABS: ABG Base Excess 10.9 MMOL/L (-2.5-2.5); ABG HCO3 34.7 MMOL/L (20-26); ABG Oxygen Saturation 99.9 % (95-100); ABG PCO2 43.4 MM HG (35-48); ABG PH 7.517 (7.35-7.45); ABG TCO2 30.8 MMOL/L (23-27)
[2017-05-24 05:10] LABS: Albumin 2.5 G/DL (3.4-5.0); Bilirubin,Total 0.4 MG/DL (0.2-1.0); Calcium 8.7 MG/DL (8.5-10.1); Osmolality,Calculated 328.6 MOS/KG (273-304); Potassium 3.8 MMOL/L (3.5-5.1); Total Protein 6.1 G/DL (6.4-8.3)
[2017-05-24] MEDS: PIPERACILLIN/TAZOBACTAM 3,375 MG in SODIUM CHLORIDE 0.9% 100 ML IV SCH (06:00)
[2017-05-24] MEDS: DORNASE ALFA 2.5 MG/2.5 ML VIAL RESP TX SCH ×2 (07:53→21:04)
[2017-05-24] MEDS: FOLIC ACID 1 MG TABLET PO SCH (09:59)
[2017-05-24] MEDS: MULTIVITAMIN LIQUID (CENTRUM) 60 ML BOTTLE PER TUBE SCH (09:59)
[2017-05-24] MEDS: GENVOYA PO SCH (09:59)
[2017-05-24] MEDS: methylPREDNISolone SOD SUC 40 MG/1 ML VIAL IV SCH (10:00)
[2017-05-24] MEDS: MONTELUKAST 10 MG TABLET PO SCH ×2 (10:00→21:21)
[2017-05-24] MEDS: RANITIDINE 150 MG/10 ML 30 ML BOTTLE PO SCH ×2 (10:00→21:21)
[2017-05-24] MEDS: DOXYCYCLINE HYCLATE INJ 100 MG in SODIUM CHLORIDE 0.9% 100 ML IV SCH ×2 (13:29→23:38)
[2017-05-24] MEDS: LABETALOL 20 MG/4 ML SYRINGE IV PRN (19:05)
[2017-05-24] MEDS ORDERED: LORazepam 2 MG/1 ML VIAL IV ONE (20:30)
[2017-05-24] MEDS: ENOXAPARIN 40 MG/0.4 ML SYRINGE SUBCUT SCH (21:21)
[2017-05-24] MEDS: ESCITALOPRAM 10 MG TABLET PO SCH (21:21)
[2017-05-24] MEDS: INSULIN GLARGINE 100 UNIT/ML SUBCUT SCH (21:22)
[2017-05-24] MEDS: hydrALAZINE 20 MG/1 ML VIAL IV PRN (22:44)
[2017-05-25] MEDS: SODIUM BICARB INJ 50 MEQ in DEXTROSE 5% NACL 0.22% 1,000 ML IV SCH (01:07)
[2017-05-25] MEDS: ALBUTEROL/IPRATROPIUM 3 ML NEB RESP TX SCH ×4 (01:19→20:01)
[2017-05-25] MEDS: LABETALOL 20 MG/4 ML SYRINGE IV PRN (01:30)
[2017-05-25] MEDS: MEROPENEM 1,000 MG in SYRINGE 1 EACH IV SCH ×3 (03:05→18:31)
[2017-05-25 04:07] LABS: Basophils % 0.1 % (0.0-0.8); Hematocrit 39.6 VOL% (35.7-47.0); Hemoglobin 11.9 GM/DL (12.0-16.0); Immature Granulocytes % 1.5 %; Immature Granulocytes Absolute 0.21 #; Lymphocytes # 0.9 10*3/uL (1.4-4.0); Lymphocytes % 6.1 % (21.3-54.2); Mean Corpuscular HGB Conc 30.1 GM/DL (32-36); Mean Corpuscular Hemoglobin 26 PG (27-34); Mean Corpuscular Volume 86.3 FL (87-102); Mean Platelet Volume 10.1 FL (9.6-12.0); Monocytes # 0.9 10*3/uL (0.11-0.8); NRBC # 0.05 10*3/uL; Neutrophils # 12.4 10*3/uL (1.4-7.4); Neutrophils % 86.3 % (38.7-73.9); Platelet Count 183 T/CUMM (130-400); Red Blood Count 4.59 MC/CUMM (3.8-5.5); Red Cell Distribution Width 21.6 % (9.3-17.3); White Blood Count 14.3 T/CUMM (4-12)
[2017-05-25 04:31] LABS: ABG Base Excess 11.8 MMOL/L (-2.5-2.5); ABG HCO3 35.7 MMOL/L (20-26); ABG Oxygen Saturation 99.7 % (95-100); ABG PCO2 48.7 MM HG (35-48); ABG TCO2 32.5 MMOL/L (23-27); Allen Test Positive; Pt O2 Delivery Device Ventilator
[2017-05-25 04:38] LABS: Albumin 2.7 G/DL (3.4-5.0); Bilirubin,Total 0.5 MG/DL (0.2-1.0); Calcium 10.1 MG/DL (8.5-10.1)
[2017-05-25] MEDS: INSULIN REGULAR 100 UNIT/ML SUBCUT SCH ×4 (05:50→17:27)
[2017-05-25] MEDS: hydrALAZINE 20 MG/1 ML VIAL IV PRN (05:51)
[2017-05-25] MEDS ORDERED: SODIUM CHLORIDE 23.4% CONC INJ 38.5 MEQ in STERILE WATER INJ 1,000 ML IV SCH (08:30)
[2017-05-25] MEDS: DORNASE ALFA 2.5 MG/2.5 ML VIAL RESP TX SCH ×2 (08:49→20:01)
[2017-05-25] MEDS ORDERED: METOPROLOL TARTRATE 25 MG TABLET PO SCH (09:00)
[2017-05-25] MEDS: GENVOYA PO SCH (09:48)
[2017-05-25] MEDS: MONTELUKAST 10 MG TABLET PO SCH (09:48)
[2017-05-25] MEDS: HYDROmorphone 2 MG/1 ML VIAL IV PRN (09:48)
[2017-05-25] MEDS: FOLIC ACID 1 MG TABLET PO SCH (09:48)
[2017-05-25] MEDS: methylPREDNISolone SOD SUC 40 MG/1 ML VIAL IV SCH (09:48)
[2017-05-25] MEDS: RANITIDINE 150 MG/10 ML 30 ML BOTTLE PO SCH (09:48)
[2017-05-25] MEDS: MULTIVITAMIN LIQUID (CENTRUM) 60 ML BOTTLE PER TUBE SCH (09:48)
[2017-05-25] MEDS: DEXTROSE 5% NACL 0.22% 1,000 ML IV SCH ×2 (11:17→18:31)
[2017-05-25] MEDS: INSULIN REGULAR DRIP 100 ML IV SCH ×2 (11:18→18:38)
[2017-05-25] MEDS: DOXYCYCLINE HYCLATE INJ 100 MG in SODIUM CHLORIDE 0.9% 100 ML IV SCH (11:18)
[2017-05-25 11:29] LABS: ABG Base Excess 3.9 MMOL/L (-2.5-2.5); ABG HCO3 27.2 MMOL/L (20-26); ABG Oxygen Saturation 64.3 % (95-100); ABG PO2 56.4 MM HG (80-95); ABG TCO2 45.5 MMOL/L (23-27); Allen Test Positive; Pt O2 Delivery Device Ventilator
[2017-05-25 11:31] LABS: ABG PH 6.945 (7.35-7.45)
[2017-05-25 16:55] LABS: Calcium 8.7 MG/DL (8.5-10.1); Magnesium 2.6 MG/DL (1.8-2.4); Osmolality,Calculated 314.4 MOS/KG (273-304); Potassium 4.1 MMOL/L (3.5-5.1)
[2017-05-25 21:16] VITALS: BP 47/34
[2017-05-28 06:21] LABS: Pneumocystis jiroveci Result Negative (Negative); Pneumocystis jiroveci Source BRONCH WASHING
== END 2017-05-25 20:52 | disposition expired | DRG 4 ==
LOC: N.ED 09:51 → SUATTDRO 11:02 → N.EDINP 11:02 → N.CC 18:45
PROVIDERS: ADMIT Hospitalist; ATTEND Internal Medicine Infectious Disease